=== PATIENT | male | born 1980 | race Caucasian/White ===

== ENCOUNTER 2025-03-04 20:08 | Inpatient (IN) | payer OTHER, SELFPAY ==
[2025-03-04] VITALS (8 sets, daily range): BP systolic 138–181; BP diastolic 99–125; BMI 40.1
[2025-03-04 17:32] LABS: % Basophils 0.9 % (0-2); % Immature Granulocytes 0.3 % (0-0.5); % Lymphocytes 23.8 % (20.5-51.1); % Monocytes 8.5 % (1.7-9.3); % Neutrophils 65.5 % (42.2-75.2); Absolute Basophils 0.1 10^3/uL (0-0.2); Absolute Eosinophils 0.1 10^3/uL (0-0.7); Absolute Lymphocytes 2.2 10^3/uL (1.2-3.4); Absolute Monocytes 0.8 10^3/uL (0.1-0.6); Absolute Neutrophils 6.2 10^3/uL (1.4-6.5); Hematocrit 43.9 % (39.0-52.0); Hemoglobin 14.9 g/dL (13.0-18.0); Mean Corp Hgb Conc. 33.9 g/dL (33.0-37.0); Mean Corpuscular Hgb 30.4 pg (27.0-31.0); Mean Corpuscular Volume 89.6 fL (80.0-94.0); Mean Platelet Volume 11.4 fL (7.4-10.4); Nucleated Red Blood Cells % 0 % (-); Platelet Count 256 10^3/uL (130-400); Red Cell Dist. Width 14.4 % (11.5-14.5); White Blood Cell Count 9.4 10^3/uL (4.8-10.8)
[2025-03-04 17:47] LABS: ALT (SGPT) 19 U/L (0-50); AST (SGOT) 23 U/L (17-59); Albumin 3.7 g/dl (3.5-5.0); Alkaline Phosphatase 153 U/L (38-126); Blood Urea Nitrogen 15 mg/dl (9-20); Calcium 9.7 mg/dl (8.4-10.2); Carbon Dioxide 21 mmol/L (22-30); Chloride 103 mmol/L (98-107); Glucose 267 mg/dl (70-99); Potassium 4.6 mmol/L (3.5-5.1); Sodium 134 mmol/L (135-145); Total Bilirubin 1.7 mg/dl (0.2-1.3); Total Protein 6.9 g/dl (6.3-8.2); eGFR > 60.00
[2025-03-04 17:54] LABS: NT-proBNP 4280 pg/ml; Troponin I 0.083 ng/ml
--- NOTE | 2025-03-04 19:08 | ED.GENMED ---
History of Present Illness
General
Chief Complaint: Breathing Problem
Time Seen by Provider: 03/04/25 18:21
History of Present Illness
History of Present Illness:
44-year-old male with history of izg-zrxehhs-wvryusbaw diabetes, hypertension, and morbid obesity presents the emergency department for evaluation of shortness of breath and leg swelling that has been ongoing for the last 2 months. He states over
the past several days he has had severe difficulty performing routine daily tasks prompting to come to the emergency department. He admits to poor medical compliance, the last time he was seen by his primary care physician was November 2023, his
primary care physician retired and he has not sought out primary care since that time. He has been off medications for more than 6 months. Prior medications include amlodipine, HCTZ, Jardiance, lisinopril, metformin, rosuvastatin, and baby
aspirin. Denies any chest pain at present.
Past History
Past History
ED Past Medical History: None
ED Past Surgical History: None
Social History
Tobacco: Non-smoker
Alcohol: Occasional
Drug: None
Personal: Single
Living: with family
Review of Systems
Review of Systems
Allergies reviewed?: Yes
All Other Systems: ROS reviewed and negative except as documented in HPI and ROS
Phy Exam
Physical Exam
Physical Exam:
GEN: Well appearing, NAD, WDWN
Eyes: PERRLA, EOMs intact, no scleral icterus
HENT: NCAT, oral mucosa moist
Lungs: Normal respiratory effort, bibasilar crackles
Cardiac: Tachycardic, regular, no murmur
Neuro: AO x 3
MSK: No gross deformity or ecchymosis. Severe bilateral lower extremity edema
Skin: No rashes, petechiae. Normal color, no pallor or jaundice.
Psych: Calm, cooperative, proper hygiene
Scores
Heart Failure Risk
Heart Failure Risk Score: Yes
History of Stroke or TIA: No
History of intubation for respiratory distress: No
Heart rate on ED arrival >/= 110: Yes
SaO2 <90% on arrival on room air: No
HR >/=110 during 3min walk test (or too ill to perform test): Yes
ECG has acute ischemic changes: No
Urea >/=12mmol/L (BUN 33.6mg/dL): No
Serum CO2>/=35mmol/L: No
Troponin I or T elevated to DE Level (0.4mg/dL): Yes
NT-proBNP >/=5,000ng/L (5,000pg/ml): No
HF Risk Score: 4
Admission Status: HIGH RISK 26.1% Consider SNF treatment or admission to hospital
Course
Orders/Labs/Results
Orders:
Orders
03/04/25 17:11
Electrocardiogram (*1) Urgent
Reason for Study: Shortness of Breath
EKG- Treatment ONCE
CXR2 [CR Chest - 2 Views ] Urgent
Comment:
Reason For Exam: sob
03/04/25 17:22
Complete Blood Count/With Diff Urgent
Comprehensive Metabolic Panel Urgent
NT-proBNP Urgent
Troponin I Urgent
03/04/25 19:05
Furosemide [Lasix] 40 mg IV ONCE ONE
03/05/25 00:00
Nitroglycerin Ointment [Nitro-Bid] 1 inch TOPICAL Q6
Abnormal Lab Results
03/04/25
17:22
MPV 11.4 H fL
(7.4-10.4)
Absolute Monos (auto) 0.8 H 10^3/uL
(0.1-0.6)
Sodium 134 L mmol/L
(135-145)
Carbon Dioxide 21 L mmol/L
(22-30)
Glucose 267 H mg/dl
(70-99)
Total Bilirubin 1.7 H mg/dl
(0.2-1.3)
Alkaline Phosphatase 153 H U/L
(38-126)
Troponin I 0.083 H* ng/ml
03/04/25 17:22
03/04/25 17:22
Vital Signs
Initial and Last Documented VS:
Initial Vital Signs
Temp Pulse Resp BP Pulse Ox
97.5 F 115 18 181/125 98
03/04/25 17:05 03/04/25 17:05 03/04/25 17:05 03/04/25 17:05 03/04/25 17:05
Last Documented Vital Signs
Temp Pulse Resp BP Pulse Ox
97.5 F 110 26 161/114 95
03/04/25 17:05 03/04/25 18:33 03/04/25 18:33 03/04/25 18:33 03/04/25 18:33
MDM/Problems Addressed
MDM/Problems Addressed:
Patient clinically in CHF secondary to medication noncompliance. Started on IV diuretics and topical nitroglycerin, will need inpatient management for further diuresis and echo as well as cardiology consultation
*Critical Care Note
Total Time (30-74mins, 75-104mins- exclusive of procedures): Not Applicable
ED Attending Note
-
Portions of this chart may have been created with voice recognition software.� Occasional wrong word or��sound alike� substitutions may have occurred due to the inherent limitations of voice recognition software.
Discharge Plan
Departure
Patient Disposition: Admit
Date of Disposition: 03/04/25
Time of Disposition: 19:19
Presentation/result/management discussed w/ accepting MD/DO: Hospitalist
Discharge Problem:
Acute CHF
Prescriptions:
No Action
No Current Medications
0
Interventions
Interventions:
*Risk Screen - Suicide Last Done: 03/04/25 17:05
*General Assessment Last Done: 03/04/25 18:41
*Neglect/Abuse Screening Last Done: 03/04/25 17:10
*ED- Fall Risk Assessment Last Done: 03/04/25 18:41
*ED COVID-19 Vaccine History Last Done: 03/04/25 18:41
ED- Cardiac Assessment Last Done: 03/04/25 18:42
ED- Pulmonary Assessment Last Done: 03/04/25 18:42
Discharge Date and Time
Print Language: BURUNDIAN
[2025-03-04] MEDS: NITRO-BID 1 INCH TOPICAL (19:43)
[2025-03-04] MEDS: LASIX 40 MG IV (19:47)
[2025-03-04 19:57] LABS: Erythrocyte Sed Rate 11 mm/hour (0-20)
--- NOTE | 2025-03-04 20:07 | HPS.HSE ---
Family Physician
-
Family Physician: * NONE
Chief Complaint
-
Shortness of Breath and Lower Extremity Edema
History of Present Illness
Patient is a 44 y/o male past medical history of hypertension, hyperlipidemia and diabetes mellitus who presents with increased shortness of breath and lower extremity edema. Patient reports his PCP retired and due to change in his insurance he has
not found a new primary at this time and has been off of his medications for the past 6 months. Patient admits to increasing shortness of breath and lower extremity edema for the past 2 months. He reports he used to exercise but now can't walk
across the room without shortness of breath. He reports orthopnea. He denies prior history of coronary artery disease or heart failure.
Patient is also complaining about a wound on his right great toe. He notes a prior wound that was being treated at the wound center. He states a callus had formed, but recent the callus was torn off and the wound has not healed. He reports foul
smelling draining for the wound. He denies fevers, sweats or chills.
Medical History
Past Medical History
Past Medical History: Reports Other
Additional Past Medical History:
Essential Hypertension
Hyperlipidemia
Diabetes Mellitus, Type II
Diabetic Neuropathy
Morbid Obesity
Past Surgical History: Reports None
Social History
Tobacco: Non-smoker
Alcohol: None
Family History
Family History: Not pertinent
Allergies / Home Medications
Allergies reflects when Allergies were last updated in [facility].
Home Medications with original date entered in [facility]
Allergy/Medication List:
Allergies
Allergy/AdvReac Type Severity Reaction Status Date / Time
No Known Allergies Allergy Verified 03/04/25 18:41
Home Medications
No Meds [No Current Medications] 03/04/25
Prior Medications:
-Lisinopril 40mg Daily
-HCTZ 12.5mg Daily
-Metformin 1000mg BID
-Crestor 5mg Daily
-Jardiance 10mg Daily
-Aspirin 81mg Daily
Review of Systems
-
A 12 point ROS was completed and negative except as noted: Yes
Constitutional: Denies Fever or Chills
Respiratory: Reports Trouble Breathing
Cardiac: Reports Palpitations
Physical Exam
Vital Signs
Vital Signs
Temp Pulse Resp BP Pulse Ox
97.5 F 106 17 161/123 94
03/04/25 17:05 03/04/25 19:47 03/04/25 19:15 03/04/25 19:47 03/04/25 19:30
Physical Exam
General: Well Developed, Well Nourished and Morbidly Obese
HEENT: Anicteric and Moist mucous membranes
Respiratory: Rales (Bilaterally)
Cardiac: S1/S2 and Regular Rhythm
GI: Soft and Non Tender
Rectal: Deferred by Provider
Musculoskeletal: No Clubbing, No Cyanosis and Other (Severe Bilateral Lower Extremity Edema)
Skin: Warm, Dry and Ulcers (Right Great Toe wound very malodorous appears deep probing bone; Super left evans wound with slough present)
Neuro: Awake, Alert, Oriented and Nonfocal/grossly intact
Psych: Calm
Laboratory Results
-
03/04/25 17:22
03/04/25 17:22
Laboratory Results
Total Bilirubin 1.7 mg/dl (0.2-1.3) H 03/04/25 17:22
AST 23 U/L (17-59) 03/04/25 17:22
ALT 19 U/L (0-50) 03/04/25 17:22
Alkaline Phosphatase 153 U/L (38-126) H 03/04/25 17:22
Troponin I 0.083 ng/ml H* 03/04/25 17:22
Impression/Plan
-
Acute Heart Failure, unknown type
-Consult Cardiology
-Check Echo
-Continue Lasix 40mg IV BID
-Monitor Daily Weights
Elevated Troponin, likely non-ischemic myocardial injury in setting of heart failure
-Trend troponin
Uncontrolled Hypertension
-Continue nitro-paste as started in ED
-Resume Lisinopril as decreased dose 20mg Daily
Right Great Toe Wound, suspect underlying osteomyelitis
-Check Foot X-Ray tonight, and plan for MRI tomorrow
-Consult Wound Care
-Consult Podiatry
-Hold on antibiotics
Uncontrolled Diabetes Mellitus with Diabetic Neuropathy
-Resume Farxiga in place of Jardiance
-Hold metformin
-Check HgbA1c
-Monitor sugars and continue coverage insulin
Hyperlipidemia
-Resume Crestor 5mg HS
-Check lipid panel - consider increasing dose based on results
Morbid Obesity due to Excess Calories
-Encourage weight loss
-Consult dietary
DVT proph: Lovenox
Code Status: Full Code
--- NOTE | 2025-03-04 20:08 | W.PN.UPDATE ---
Update Note
Progress Note Update
Patient seen in conjunction with JULIA. I agree with the findings and physical. I concur with the assessment and plan listed otherwise. Next
Briefly, this is a 44-year-old male with past medical history significant for hypertension, hyperlipidemia, pbp-bdbnoxl-mkgsuzlwc diabetes, who presents to the emergency department with approximately 6 to 8 weeks of increasing exertional dyspnea,
orthopnea, shortness of breath and bilateral lower extremity swelling. He has been off of his medications for about 6 months due to loss of his primary care physician and change of jobs. Patient denies angina. He denies palpitations. He denies
any recent cough cold or flulike illness. He reports chronic right great toe wound. You have been following wound care for some time but more recently had a scab that came off and since then it has been nonhealing for several weeks. Denies having
fevers or chills. He denies pain radiating up his legs. On the left leg he does have some punctate wounds with surrounding erythema and mild tenderness to palpation.
In the emergency department he was afebrile, blood pressure was 161/114, he was tachycardic to 110 with respirate of 26. ECG shows sinus tachycardia at a rate of 107 with left atrial enlargement and low voltages. Chest x-ray shows pulmonary edema.
Prior echocardiogram few years ago shows a left ventricular hypertrophy with EF of 55%. Troponin was slightly elevated at 0.08, BNP was elevated over 4000
CBC was normal. Electrolytes BUN and creatinine were also normal. Glucose was slightly elevated at 267.
Assessment and plan
44-year-old coming in with orthopnea, dyspnea on exertion shortness of breath and bilateral lower extremity edema. Lungs had crackles on x-ray with pulmonary edema. BNP is elevated. Troponin slightly elevated. He is an uncontrolled hypertension.
Glucose is controlled. He does appear to have diabetic right great toe wound as well as possible cellulitis of the left leg. He is afebrile has no leukocytosis and is quite hemodynamically stable. Glucose is well-controlled without DKA.
1. CHF
New onset CHF likely secondary to history of uncontrolled hypertension in the setting of lack of access to his medications. No acute ischemia on ECG but cannot rule out ischemic cardiomyopathy. No recent infections. No history of connective
tissue disease.
- Admit to telemetry
- Continue Lasix 40 mg IV twice daily for now
- trend troponin
- Patient placed on Nitropaste we will continue that for 6 hours until BP well-controlled
- Continue aspirin statin and Jardiance
-Additional BP control with lisinopril 20 mg
-Beta-krystal pending echocardiogram
- echo, lipid panel, A1c, TSH
- Cardiology consultation
2. Diabetic foot ulcer in the right great toe -wet, draining, no sign of ischemia at this time. No surrounding cellulitis. Mild tenderness to palpation. He also has mild erythema on the left lower extremity. No signs of systemic infection at
this time.
-Suspect possible osteomyelitis in that toe, check inflammatory markers and MRI
-Podiatry consultation
-Consider ID consultation
-Blood cultures despite fever and did not start antibiotics but pending and that will hold for antibiotics until MRI and podiatry consults.
DVT PPX - lovenox sq
Code status - Full code
[2025-03-04] MEDS: LOW STRENGTH ASPIRIN 324 MG PO (21:03)
[2025-03-04 23:44] LABS: Glucose - Point of Care 259 mg/dl (70-99)
[2025-03-05] VITALS (11 sets, daily range): BP systolic 118–179; BP diastolic 86–127; BMI 39.9
[2025-03-05 01:03] LABS: Troponin I 0.088 ng/ml
--- NOTE | 2025-03-05 02:14 | PTCARENOTE ---
Pt. rec'd into room 2255 from ED AAOx3, VSS, NSR-ST (120's with activity) on the monitor. Pt. denies any CP, does complain of some dyspnea with ambulation. Lungs diminished, pulse ox 96% on RA. Wound care provided to right great toe (pt. denies
pain). Pt. ambulates with steady gait. Plan of care discussed with pt., CHF education initiated (folder given), importance of accurate I&O's explained. Pt. very pleasant/cooperative, currently resting quietly.
[2025-03-05 03:50] LABS: Hematocrit 39.2 % (39.0-52.0); Hemoglobin 13.6 g/dL (13.0-18.0); Mean Corp Hgb Conc. 34.7 g/dL (33.0-37.0); Mean Corpuscular Hgb 31.3 pg (27.0-31.0); Mean Corpuscular Volume 90.3 fL (80.0-94.0); Mean Platelet Volume 12.1 fL (7.4-10.4); Platelet Count 230 10^3/uL (130-400); Red Blood Cell Count 4.34 10^6/uL (4.70-6.10); Red Cell Dist. Width 14.3 % (11.5-14.5); White Blood Cell Count 8.3 10^3/uL (4.8-10.8)
[2025-03-05 04:18] LABS: ALT (SGPT) 17 U/L (0-50); AST (SGOT) 23 U/L (17-59); Albumin 3.7 g/dl (3.5-5.0); Alkaline Phosphatase 133 U/L (38-126); Blood Urea Nitrogen 14 mg/dl (9-20); Calcium 9.5 mg/dl (8.4-10.2); Carbon Dioxide 22 mmol/L (22-30); Chloride 103 mmol/L (98-107); Direct Bilirubin 0.5 mg/dl (0.0-0.4); Estimated Creatinine Clearance > 125 ml/min; Glucose 219 mg/dl (70-99); HDL Cholesterol 29 mg/dl; LDL Cholesterol, Calculated 112 mg/dl; Magnesium 1.7 mg/dl (1.6-2.3); Potassium 4.1 mmol/L (3.5-5.1); Sodium 136 mmol/L (135-145); Total Bilirubin 1.8 mg/dl (0.2-1.3); Total Cholesterol 162 mg/dl (50-199); Total Protein 6.6 g/dl (6.3-8.2); Triglyceride 105 mg/dl (10-149); Very Low Density Lipoprotein 21 mg/dl (0-30); eGFR > 60.00
[2025-03-05 04:29] LABS: Troponin I 0.079 ng/ml
[2025-03-05 04:46] LABS: TSH Reflex To Free T4 1.74 uIU/ml (0.47-4.68)
[2025-03-05] MEDS: LASIX 40 MG IV ×2 (07:26→16:23)
[2025-03-05] MEDS: FARXIGA 10 MG PO (07:26)
[2025-03-05] MEDS: ASPIR LOW (ENTERIC COATED) 81 MG PO (07:26)
[2025-03-05] MEDS: ZESTRIL 20 MG PO (07:26)
--- NOTE | 2025-03-05 07:42 | CON.CAR ---
Addendum entered and electronically signed by Siva Castro MD 03/05/25 12:53:
44-year-old man with hypertension, hyperlipidemia and diabetes who has been off medication for roughly 6 months. He presents to the hospital with evidence of heart failure, EF unknown, proBNP is 4280, blood pressure 181/125., Troponin is 0.079 he
complains of shortness of breath and is aware of his heart pounding when he walks but denies chest discomfort. He states that he used to weigh close to 500 pounds and with diet and exercise has lost close to 200 pounds. Echo in 2021 showed
preserved ejection fraction.
PMH: Hypertension, hyperlipidemia, diabetes, obesity, diabetic neuropathy
SH: Non-smoker no alcohol, works at [employer], single
Meds on admission: None
Meds in hospital: Subcu Lovenox, furosemide 40 mg IV twice daily, insulin sliding scale, aspirin 81 mg daily, lisinopril 20 mg a day, dapagliflozin 10 mg a day, metoprolol ER 25 mg daily, rosuvastatin 20 mg a day
Allergies none
ROS as below
Remainder of history as below, reviewed and independently confirmed along with assessments and recommendations
Currently 159/107, pulse 99, respiratory 20, afebrile, sats 95%, weight is 137.3 kg, pleasant, no distress, head neck exam unremarkable, lungs are clear, relatively tachycardic, no obvious murmurs, JVD okay, abdomen obese, 3+ edema right, 2-3+ edema
left, right foot wrapped
Hemoglobin 13.6, BUN 14, creatinine 0.8, glucose 219, hemoglobin A1c 9.9, troponin 0.088, proBNP 4280, chest x-ray cardiomegaly, mild vascular congestion
ECG: Low voltage, left atrial enlargement
Impression:
Subacute/acute heart failure, EF unknown
Accelerated/malignant hypertension
Detectable troponin
Hypercholesterolemia
Type 2 diabetes
Morbid obesity, with 200 pound weight loss
Diabetic foot ulcer
Diabetic neuropathy
Plan:
He presents with subacute/acute heart failure, ejection fraction unknown related to discontinuation of his medical regimen. I am hopeful that his ejection fraction will be preserved, and that with diuresis and GDMT he will do well.
I suspect his troponin elevation is a nonischemic myocardial injury, not related to ACS or obstructive CAD. Therefore, the plan will not be to heparinize or send him to the [facility] unless his clinical status changes. We can consider an outpatient
ischemic evaluation.
He looks much better than reported at the time of admission. He is already back on a long acting beta-krystal, statin, dapagliflozin, CAS inhibitor and furosemide. We can consider spironolactone. Will uptitrate medications as possible.
Await echocardiogram, continue IV diuretic, and hopefully patient will be ready for discharge in 48 to 72 hours.
Original Note:
Consultation
Consultation Request
Date/Time Consultation Performed: 03/05/25
Requesting Provider: Dr. Delvalle
Performing Provider: Arelis Merino PA-C for Dr. ODILON Castro
Reason for Consultation: CHF
Medical History
-
Chief Complaint: SOB
History of Present Illness:
Patient is a 44 yo M with PMH of HTN, HLD, DM2 who states his PCP retired 11/2023 and has not seen provider since that time. He ran out of his medications, which include amlodipine, HCTZ, Jardiance, lisinopril, metformin, rosuvastatin, and baby
aspirin, approximately 6 months ago. He reports noting SOB and LE edema, worsening over the last 2 months, particularly worse several days prior to admission. Reports heart pounding, LE edema, weight gain, abd bloating, and orthopnea. No CP. BPs
elevated on arrival at 181/125. ProBNP 4280 and CXR with mild edema. Cardiology consulted for assistance with mgmt. He also reports a wound on his R foot which he initially felt was healing however opened back up. No fevers/chills.
PMH:
HTN
HLD
DM
Obesity
Past Medical History
Past Medical History: Other (in HPI)
Social History
Tobacco: Non-Smoker
Alcohol: None
Employment: Employed
Family History
Family History: Diabetes and Other (CVA in grandmother)
Allergies / Home Medications
Allergy/AdvReac Type Severity Reaction Status Date / Time
No Known Allergies Allergy Verified 03/04/25 18:41
�Medication �Instructions �Recorded �Confirmed �Type
No Meds [No Current Medications] 03/04/25 03/04/25 History
Review of Systems
-
History Source: Patient
All other systems: Negative unless noted
Physical Exam
Vital Signs
Temp Pulse Resp BP Pulse Ox
97.7 F 102 20 157/101 96
03/05/25 06:49 03/05/25 06:49 03/05/25 06:49 03/05/25 03:33 03/05/25 06:49
Lab Results
03/05/25 03:30
03/05/25 03:30
Troponin I 0.079 ng/ml H* 03/05/25 03:30
Vvb-O-Vbqzyylqtql Pept 4280 pg/ml 03/04/25 17:22
Physical Exam
General: No Apparent Distress and Comfortable
HEENT: Normocephalic, Anicteric and Moist Mucous Membranes
Respiratory: Crackles and Non Labored Respirations
Cardiac: S1/S2, Regular Rhythm and Other (tachy)
GI: Soft, Non Tender, Normal Bowel Sounds and Distended
Musculoskeletal: No Clubbing, No Cyanosis and Edema (4+ of B/L LE)
Skin: Warm and Dry
Neuro: AO x 3
Impression / Plan
-
Primary Network Programmer: none
Assessment:
Presentation with VELASQUEZ
Hypertensive urgency
Acute CHF, unknown type
Elevated troponin
Sinus tachycardia
R diabetic foot wound
Uncontrolled DM2 with diabetic neuropathy
HLD
Obesity
ECHO 2021: EF 55%, mild concentric LVH, trace MR, mildly dilated LA, normal right heart
Plan:
- Patient presents with dyspnea on exertion and lower extremity edema
- proBNP 4280 and chest x-ray with evidence of pulmonary edema. Continue IV Lasix 40 mg twice daily. Patient reports good response. Creatinine stable at 0.8. He had been on HCTZ prior to stopping all his meds
- CHF education
- In sinus tachycardia with PVCs on review of telemetry overnight. Repeat EKG this a.m.
- Check echo, prior from 2021 as above
- Troponins relatively flat in 0.08 range. Reports some feelings of chest pressure when his heart is pounding. Suspected nonischemic myocardial injury. Aspirin 81 mg daily has been restarted
- Would consider for IV heparin. Given risk factors, would consider for inpatient ischemic evaluation prior to discharge once diuresed
- LDL 112. will increase crestor dose. goal LDL<70 given diabetes
- Hemoglobin A1c pending. Farxiga has been auto substituted for his prior Jardiance
- We discussed need for medication compliance and improved blood pressure, cholesterol, and blood sugar control
- prior to running out of his medications, patient was on amlodipine, HCTZ, Jardiance, lisinopril, metformin, rosuvastatin, and baby aspirin. Toprol 25 mg daily started and lisinopril 20 mg daily restarted.
- For abdominal ultrasound, right lower extremity MRI, as well as NORA today
- Continue wound care to right lower extremity. Podiatry consulted
- Discussed with nursing
Data Reviewed
-
EKG: Tracing Personally Visualized and interpreted
Radiology: Report Reviewed by me
Medical Tests (Nuc Med, Echo etc): Report Reviewed by me
Labs: Labs Reviewed by me
Old Records: Reviewed
[2025-03-05 08:02] LABS: Glucose - Point of Care 201 mg/dl (70-99)
[2025-03-05] MEDS: NOVOLOG FLEXPEN-LOW RESISTANCE 2 UNITS SC (08:14)
--- NOTE | 2025-03-05 08:26 | W.PN.HOSP.TC ---
Today's Communication/Plan
-
See PN
Assessment / Plan
Assessment / Plan
44yo M with PMHx of DM, HTN, CHF came to the hospital with ongoing SOB. He lost follow up with PCP 1 year ago and ran out of his meds appr 6 month before this admission. Could not follow up with his chronic health problems due to family reasons and
finally found availability in his work and family schedule to come to ED. Found in mild CHF. ALso had R great toe wound for 2-3 months, with foul smelling discharge, concerning for diabetic wound with OM.
A/P:
#Acute HFpEF exacerbation
#Troponin elevation, most likely 2/2 CHF
#Sinus tachycardia
#Essential HTN
Lasix, daily weight, I&O, follow Cr, electrolytes
Low saklt diet
Echo
Cardiology consult
ASA, statin, BB
TSH WNL
LDL 112
troponin flat 0.079-0.088-0.[address] overt ST elevation
#R great toe diabetic wound with possible acute OM
Bcx
woundCx
Start Vanco/Zosyn
follow MRSA screen
Podiatry consult
MRI
US LE arterial
#DM type 2 with unknown complications
Accuchecks, insulin SS, DM diet
HgbA1c
#Indirect bilirubinemia
#Elevated Alk.phos
can be 2/2 CHF, liver congestion, [place], Alk.phos can be 2/2 bone involvement in toe infection
Check US RUQ, LDH, retics
DVT ppx lovenox
Full code
I have spent at least 55min reviewing chart, test results, communication with consultants and providing direct patient care
Anticipated Discharge: > 48 hours
Subjective/Interval History
-
Date of Service: March 05, 2025
Objective Data
-
Labs:
Laboratory Results
03/05/25
03:30
WBC 8.3
Hgb 13.6
Hct 39.2
Plt Count 230
Sodium 136
Potassium 4.1
Chloride 103
Carbon Dioxide 22
BUN 14
Creatinine 0.8
Glucose 219 H
Calcium 9.5
Total Bilirubin 1.8 H
AST 23
ALT 17
Alkaline Phosphatase 133 H
Vital Signs:
Vital Signs
Temp Pulse Resp BP Pulse Ox
97.7 F 102 20 157/101 96
03/05/25 06:49 03/05/25 06:49 03/05/25 06:49 03/05/25 03:33 03/05/25 06:49
I&O
03/04/25 03/05/25 03/06/25
06:59 06:59 06:59
Intake Total 480 / 480
Output Total 3350 / 3350
Balance -2870 / -2870
Review of Systems
-
History Source: Patient
All other systems: Reviewed and negative
Respiratory: Reports Trouble Breathing
Cardiac: Reports Chest Pain (intermittent chest pressure)
Physical Exam
-
General: Comfortable
HEENT: Normocephalic
Respiratory: Crackles (bibasilar)
Cardiac: Regular Rhythm and Tachycardic
GI: Soft, Nontender and Nondistended
Musculoskeletal: No Clubbing, No Cyanosis, Edema, Right Lower Extrem and Edema, Left Lower Extrem
Skin: Other (R great toe wound)
Neuro: Awake, Alert, Oriented and AO x 3
Psych: Calm
[2025-03-05 08:34] LABS: Glycohemoglobin (HgbA1c) 9.9 % (4.0-5.6)
--- NOTE | 2025-03-05 09:18 | CARDSERVLU ---
Echocardiogram with [facility] completed after protocol screening completed. Allergies verified.
Patent IV site: _Right arm 18 G PC____
IV site flushed with 0.9% NaCl pre and post administration.
Diluted bolus method utilized to enhance visualization of ventricular gutierrez.
Total volume given: __2.5__ mL
Patient tolerated all procedures well without complications.
[2025-03-05 09:24] LABS: Reticulocyte Count 3.6 % (0.4-2.8)
[2025-03-05 10:04] LABS: LDH 251 U/L (120-246)
[2025-03-05] MEDS: TOPROL XL 25 MG PO (10:33)
[2025-03-05 12:16] LABS: Glucose - Point of Care 159 mg/dl (70-99)
[2025-03-05] MEDS: NOVOLOG FLEXPEN-LOW RESISTANCE 1 UNITS SC (12:19)
--- NOTE | 2025-03-05 12:41 | WOUNDNOTE ---
L MEDIAL LOWER LEG
--- NOTE | 2025-03-05 12:42 | WOUNDNOTE ---
R PLANTAR GREAT TOE
--- NOTE | 2025-03-05 12:43 | WOUNDNOTE ---
L LATERAL ANKLE/LEG
--- NOTE | 2025-03-05 12:45 | WOUNDNOTE ---
[facility] RN note: Patient admitted with acute CHF
See H&P for complete history.
PMH: NIDDM, obesity and diabetic R toe ulcer( went to wound center 04/28/[address] Stein)
Wound Location and type/assessment: Patient admitted with: R plantar great toe diabetic ulcer. Patient reports last time he went to wound care center it was healed. Ulcer reopened, patient unsure of duration. Base pink with cunha/arechiga slough, did not
palpate bone, depth 1cm. Patient for MRI of R foot, NORA/TBI results pending. Podiatry on consult.
L lateral ankle with dry cunha eschar, anterior leg with small serous blister and medially with dry cunha eschar. Patient does not recall how he got these wounds but started when leg swelled up. + palpable pedal pulses, heels intact.
Appetite: good
Pressure redistribution devices in place:On air mattress. Pillow under calves.
Plan: Dry dressing applied to R toe and L leg, will follow along with Podiatry and assist as needed. Recommend compression of both legs with reese wraps knee high, if arterial studies within normal limits.
Will confirm orders with hospitalist and update nurse.
Updated care plan and will follow as needed.
Note to case management of equipment requested for discharge: TBD
Recommend follow up with Pole Truck Driver.
--- NOTE | 2025-03-05 12:46 | WOUNDNOTE ---
[facility] RN NOTE ADDENDUM: Wound culture obtained of R great toe as requested, nurse Maria Fernanda will bring to lab.
[2025-03-05] MEDS: TOPROL XL 50 MG PO (13:28)
--- NOTE | 2025-03-05 14:08 | PTCARENOTE ---
Pt received this am with no c/o of any pain or sob. Room air sat 98%. OOB ad christin, gait steady. Voiding large amounts of clear yellow urine in the urinal. Pt maintained NPO for US of the abdomen.
--- NOTE | 2025-03-05 15:48 | CM ---
spoke to pt in room, he is prev indep, lives with his mother and father in a 1 story home with a ramp to enter. he denies any dme's. he understands he may need to go home with iv antibx and is agreeable. awaiting script from ID to begin referral
process. he does not have a PCP, his MD (Harjeet) retired. i gave the pt information on Family resident program and he is interested. awaiting final dc plans from MD.
--- NOTE | 2025-03-05 16:33 | W.PN.UPDATE ---
Update Note
Progress Note Update
pt seen
full consult dictated
ulcer stable, but probes to bone. Probable osteo
awaiting mri
rec amp if positive and extent of osteo
d/.w pt about iv abx vs amp
wants to think about it
will follow
[2025-03-05] MEDS: FLUSH (NSS) 2 FLUSH IV (16:52)
[2025-03-05] MEDS: VANCOCIN 540 MG IV (16:52)
[2025-03-05 17:16] LABS: Glucose - Point of Care 144 mg/dl (70-99)
[2025-03-05] MEDS: NOVOLOG FLEXPEN-LOW RESISTANCE SC (17:45)
[2025-03-05] MEDS: CRESTOR 20 MG PO (17:47)
[2025-03-05] MEDS: LOVENOX 40 MG SC (17:47)
--- NOTE | 2025-03-05 17:58 | PHA.VAN.IN ---
Assessment
- Assessment
Renal Function: Unknown baseline
Concomitant Antimicrobials: ZOSYN
- Previous Dosing Experience
Previous Regimen: NONE
AUC Dosing Plan
- Dosing Variables
Dosing Weight (kg): 137.3
Dosing CrCl (ml/min): 100
Vd coefficient (L/kg): 0.6
- Empiric Dosing
Initial / Loading Dose: 2GM
Maintenance Regimen: 1750MG IV Q12H
Estimated AUC (mcg*h/mL): 529
Estimated Peak (mcg*h/mL): 32.7
Estimated Trough (mcg/ml): 13.6
Estimated Half Life (H): 7.9
Pharmacokinetics Vancomycin I
- -
Patient Age: 44
Patient Sex: Male
Vancomycin Day #: 1
Indication: Bone And Joint
Requesting Provider: RASHEL
Height / Weight:
Height 6 ft 1 in
Actual Weight 137.3 kg
Pertinent Past Medical History: DM
- Vital Signs / Lab Results
Temp Pulse Resp BP Pulse Ox
98.4 F 99 20 159/107 94
03/05/25 14:53 03/05/25 12:00 03/05/25 14:53 03/05/25 11:04 03/05/25 14:53
Lab Results - Hematology
03/04/25 03/05/25
17:22 03:30
WBC 9.4 8.3
Lab Results - Chemistry
03/04/25 03/05/25
17:22 03:30
BUN 15 14
Creatinine 0.8 0.8
Estimated Creat Clear > 125
Albumin 3.7 3.7
Microbiology Results
03/05/25 11:39 Gram Stain - Preliminary
Toe
[2025-03-05] MEDS: ZOSYN 50 IV ×2 (19:57→23:15)
[2025-03-05 21:46] LABS: Glucose - Point of Care 141 mg/dl (70-99)
[2025-03-06] VITALS (10 sets, daily range): BP systolic 116–168; BP diastolic 74–110; BMI 37.8
--- NOTE | 2025-03-06 04:10 | PTCARENOTE ---
Rec'd pt at change of shift. AAO*#, VSS, SR on TELE monitor with elevated BP. Pt taken to MRI. Pt returned and reported bloody nose, with high blood pressure. JULIA vizcaino notified and assessed pt at bedside. Pt denies having any pain or
discomfort. Pt now resting with call jones in reach and plan of care ongoing.
[2025-03-06 04:40] LABS: ALT (SGPT) 15 U/L (0-50); AST (SGOT) 20 U/L (17-59); Albumin 3.7 g/dl (3.5-5.0); Alkaline Phosphatase 113 U/L (38-126); Blood Urea Nitrogen 14 mg/dl (9-20); Calcium 9.4 mg/dl (8.4-10.2); Carbon Dioxide 23 mmol/L (22-30); Chloride 102 mmol/L (98-107); Estimated Creatinine Clearance > 125 ml/min; Glucose 119 mg/dl (70-99); Potassium 3.6 mmol/L (3.5-5.1); Sodium 138 mmol/L (135-145); Total Bilirubin 1.4 mg/dl (0.2-1.3); Total Protein 6.5 g/dl (6.3-8.2); eGFR > 60.00
[2025-03-06 04:43] LABS: % Eosinophils 1.6 % (0-6); % Immature Granulocytes 0.2 % (0-0.5); % Lymphocytes 25.2 % (20.5-51.1); % Monocytes 12.3 % (1.7-9.3); % Neutrophils 59.7 % (42.2-75.2); Absolute Basophils 0.1 10^3/uL (0-0.2); Absolute Eosinophils 0.1 10^3/uL (0-0.7); Absolute Lymphocytes 2.3 10^3/uL (1.2-3.4); Absolute Monocytes 1.1 10^3/uL (0.1-0.6); Absolute Neutrophils 5.4 10^3/uL (1.4-6.5); Hematocrit 41.9 % (39.0-52.0); Mean Corp Hgb Conc. 33.4 g/dL (33.0-37.0); Mean Corpuscular Hgb 30.5 pg (27.0-31.0); Mean Corpuscular Volume 91.3 fL (80.0-94.0); Mean Platelet Volume 12.2 fL (7.4-10.4); Nucleated Red Blood Cells % 0 % (-); Platelet Count 231 10^3/uL (130-400); Red Blood Cell Count 4.59 10^6/uL (4.70-6.10); Red Cell Dist. Width 14.5 % (11.5-14.5)
[2025-03-06] MEDS: ZOSYN 50 IV ×4 (05:38→23:06)
[2025-03-06] MEDS: VANCOCIN 535 MG IV ×2 (06:17→18:08)
[2025-03-06 08:02] LABS: Glucose - Point of Care 118 mg/dl (70-99)
[2025-03-06] MEDS: NOVOLOG FLEXPEN-LOW RESISTANCE SC (08:12)
--- NOTE | 2025-03-06 08:54 | W.PN.UPDATE ---
Update Note
Progress Note Update
pt with early osteo distal phal hallux on mri
Due to finding and tissue defect, rec at minimum partial amp/amp of hallux. Will d/w pt. Stable for now, cont abx. D/w cardio---needs cath first and they will decide when stable for OR
Was going to do today, will cancel OR for today
please keep posted as when pt is stable for OR
[2025-03-06] MEDS: ZESTRIL 20 MG PO (08:58)
[2025-03-06] MEDS: FARXIGA 10 MG PO (08:58)
[2025-03-06] MEDS: ASPIR LOW (ENTERIC COATED) 81 MG PO (08:58)
[2025-03-06] MEDS: TOPROL XL 100 MG PO (08:58)
[2025-03-06] MEDS: HYDROPHOR 1 APPLIC TOPICAL (08:59)
[2025-03-06] MEDS: LASIX 40 MG IV ×2 (08:59→16:15)
--- NOTE | 2025-03-06 09:12 | W.PN.HOSP.TC ---
Today's Communication/Plan
-
cardiac cath
monitor recurrent nose bleed, cold compress as needed, apply pressure
Cont Abx
Assessment / Plan
Assessment / Plan
44yo M with PMHx of DM, HTN, CHF came to the hospital with ongoing SOB. He lost follow up with PCP 1 year ago and ran out of his [employer] appr 6 month before this admission. Could not follow up with his chronic health problems due to family reasons and
finally found availability in his work and family schedule to come to ED. Found in mild CHF. ALso had R great toe wound for 2-3 months, with foul smelling discharge, concerning for diabetic wound with OM.
A/P:
#Acute HFpEF exacerbation
#Troponin elevation, most likely 2/2 CHF
#Sinus tachycardia
#Essential HTN
Lasix, daily weight, I&O, follow Cr, electrolytes
Low salt diet
Echo: EF 15% with global hypokinesis
Cardiology consult: cath
ASA, statin, BB
TSH WNL
LDL 112
troponin flat 0.079-0.088-0.083
[address] without overt ST elevation
#R great toe diabetic wound with acute OM
Bcx NTD
woundCx: GPR, GNR, GPC
Vanco/Zosyn
MRSA screen pos
Podiatry consult: for surgical mgmt
MRI proved initial stage of OM
US LE arterial witthout PAD
#DM type 2 with unknown complications
Accuchecks, insulin SS, DM diet
HgbA1c
#Epistaxis
minimal
most probably 2/2 blowing the nose
monitor
#Indirect bilirubinemia - improved
#Elevated Alk.phos - resolved
LDH midly elevated as well as mild retics elevation and total bili 1.4 - most likely reaction to acute disease
DVT ppx lovenox
Full code
I have spent at least 35min reviewing chart, test results, communication with consultants and providing direct patient care
Anticipated Discharge: > 48 hours
Subjective/Interval History
-
Date of Service: March 06, 2025
Objective Data
-
Labs:
Laboratory Results
03/06/25
02:49
WBC 9.0
Hgb 14.0
Hct 41.9
Plt Count 231
Sodium 138
Potassium 3.6
Chloride 102
Carbon Dioxide 23
BUN 14
Creatinine 0.8
Glucose 119 H
Calcium 9.4
Total Bilirubin 1.4 H
AST 20
ALT 15
Alkaline Phosphatase 113
Vital Signs:
Vital Signs
Temp Pulse Resp BP Pulse Ox
98.3 F 98 20 145/93 97
03/06/25 07:53 03/06/25 08:58 03/06/25 07:53 03/06/25 08:58 03/06/25 07:53
I&O
03/05/25 03/06/25 03/07/25
06:59 06:59 06:59
Intake Total 480 / 480 530 / 530
Output Total 3350 / 3350 6690 / 6690
Balance -2870 / -2870 -6160 / -6160
Review of Systems
-
History Source: Patient
All other systems: Reviewed and negative
Physical Exam
-
General: No Apparent Distress
HEENT: Normocephalic
GI: Soft, Nontender and Nondistended
Musculoskeletal: Other (foul-smelling diabetic wound on R great toe)
--- NOTE | 2025-03-06 11:46 | W.PN.CARDCBS ---
Addendum entered and electronically signed by aTvo Guzman MD 03/06/25 13:56:
I saw and examined the patient.
The Educational Director's note was reviewed and I agree with the note.
Comment:
GEN: No distress, awake, Ox3
HEENT: supple, anicteric, mmm
LUNGS: CTA, no wheezes/rales
CV: Reg, S1/S2, 1/6 syst LSB, no gallop
ABD: soft, BS+, NT/ND
EXT: dressing intact
NEURO: Gross non-focal
SKIN: No rash
Plan:
Continues to do Lasix. With diabetes and markedly reduced ejection fraction we will proceed with right and left heart catheterization in a.m.
Start carvedilol 12.5mg po bid, add spironolactone 12.5mg daily, continue continue Cipro 20 mg daily and Farxiga 10 mg daily.
Ultimately also needs toe amputation per podiatry. Continue antibiotics for now.
Will await catheterization results prior to surgery.
Original Note:
Today's Communication / Plan
-
Continue diuresis
Cath in a.m.
Transition Toprol to Coreg given EF reduction and add Aldactone given low EF
will need R great toe amp prior to DC
Impression / Plan
-
Primary Hand Fabric Cutter: none
Assessment:
Presentation with VELASQUEZ
Hypertensive urgency
Acute HFrEF
Elevated troponin
Sinus tachycardia
R diabetic foot wound with osteomyelitis
Uncontrolled DM2 with diabetic neuropathy
HLD
Obesity
ECHO 2021: EF 55%, mild concentric LVH, trace MR, mildly dilated LA, normal right heart
ECHO 03/05/25: EF 27%, global hypokinesis, mod enlarged LA, mildly enlarged RA, no significant valvular disease, trace pericardial effusion
Plan:
- Patient presents with dyspnea on exertion and lower extremity edema
- Diuresing well with IV Lasix 40 mg twice daily with markedly negative I&O. Creatinine remains stable
- CHF education
- Echocardiogram with results as above, EF 27%, new reduction compared to last echo from 2021. Reviewed results with patient 03/06.
-Will transition Toprol to Coreg 12.5mg BID. Continue lisinopril. Add Aldactone 12.5 mg daily
- Given new cardiomyopathy, new CHF, and elevated troponin, will plan for left and right heart cath this admission. Patient believes he can lay flat so we will plan for cath in a.m. N.p.o. after midnight. Procedure reviewed with patient in
detail. Concern for multivessel disease given uncontrolled diabetes
- LDL 112. Crestor dose increased this admission. Goal LDL less than 70 given diabetes
- Hemoglobin A1c 9.9%. Will consult diabetic management. Farxiga has been auto substituted for his prior Jardiance
- of note, prior to running out of his medications, patient was on amlodipine, HCTZ, Jardiance, lisinopril, metformin, rosuvastatin, and baby aspirin.
- Discussed with podiatry. He has right great toe osteomyelitis and will need amputation this admission once optimized from a cardiac standpoint. Continue wound care
- he has poor insight into severity of his medical issues. discusses he would like to go home as soon as possible so he can get back to work. we discussed that he will likely be here for several more days.
Progress Note - Hand Fabric Cutter
Subjective
Date of Service: March 06, 2025
Denies chest pain. Reports significant urine output and improvement in lower extremity edema
Objective
Labs:
03/06/25 02:49
03/06/25 02:49
Labs
Hgb 14.0 g/dL (13.0-18.0) 03/06/25 02:49
Hct 41.9 % (39.0-52.0) 03/06/25 02:49
Plt Count 231 10^3/uL (130-400) 03/06/25 02:49
Sodium 138 mmol/L (135-145) 03/06/25 02:49
Potassium 3.6 mmol/L (3.5-5.1) 03/06/25 02:49
BUN 14 mg/dl (9-20) 03/06/25 02:49
Creatinine 0.8 mg/dL (0.7-1.3) 03/06/25 02:49
Glucose 119 mg/dl (70-99) H 03/06/25 02:49
Troponins
03/04/25 03/04/25 03/05/25
17:22 23:56 03:30
Troponin I 0.083 H* 0.088 H* 0.079 H*
Vital Signs and I&O:
Vital Signs
Temp Pulse Resp BP Pulse Ox
98.2 F 98 18 145/93 94
03/06/25 10:49 03/06/25 08:58 03/06/25 10:49 03/06/25 08:58 03/06/25 10:49
Vital Signs
Temp Pulse Resp BP Pulse Ox
98.2 F 98 18 145/93 94
03/06/25 10:49 03/06/25 08:58 03/06/25 10:49 03/06/25 08:58 03/06/25 10:49
Intake & Output
03/04/25 03/05/25 03/06/25 03/07/25
07:59 07:59 07:59 07:59
Intake Total 480 / 480 530 / 530
Output Total 3350 / 3350 6690 / 6690 2800 / 2800
Balance -2870 / -2870 -6160 / -6160 -2800 / -2800
Physical Exam
Physical Exam
GEN: No distress, awake, alert, oriented x3. Obese
HEENT: supple, anicteric, mmm, EOMI
LUNGS: CTA bilaterally, no wheezes/rales
CV: Reg, S1/S2, no murmur
ABD: soft, BS+, NT/ND
EXT: No cyanosis, clubbing. 3+ edema of bilateral lower extremity to thigh
NEURO: Gross non-focal
SKIN: Warm, pink, dry. No rash
[2025-03-06 12:15] LABS: Glucose - Point of Care 171 mg/dl (70-99)
[2025-03-06] MEDS: NOVOLOG FLEXPEN-LOW RESISTANCE 1 UNITS SC (12:15)
[2025-03-06] MEDS: KCL 20 MEQ PO (12:16)
[2025-03-06] MEDS: ALDACTONE 12.5 MG PO (12:24)
--- NOTE | 2025-03-06 12:53 | W.PN.UPDATE ---
Update Note
Progress Note Update
Had discussion with pt on phone about mri and amp. Pt states he wants to wait for amp so he can make arrangements at home. I explained should get done on this admit so it doesnt get worse, etc. Pt understands risks of waiting. Will d/w pt again
after cath
--- NOTE | 2025-03-06 14:40 | PN.CDI ---
CDI
- -
CDI:
Physician Documentation Request
Admit Date: 03/04/25 20:08
Dear Doctor Adelia,
Please review the following and provide your response in the progress notes.
Clinical Indicators:
Pt admitted with CHF/ Diabetic foot ulcer with acute osteomyelitis of right toe
ECHO 03/05, ' Severely reduced left ventricular systolic function. Left ventricular ejection fraction is 27%.'
Progress note 03/06, ' #Acute HFpEF exacerbation..'
Cardiology progress note 03/06,' Acute HFrEF...ECHO 03/05/25: EF 27%, global hypokinesis,...Diuresing well with IV Lasix 40 mg twice daily ...'
Please provide further specificity regarding the most likely type and acuity of CHF you are evaluating, treating or monitoring.
Acute Systolic CHF
Acute HFpEF exacerbation ( no change in documentation)
Other ( please specify)
Use of terms such as suspected, likely, concern for, or probable (associated with a specific diagnosis that is being evaluated, monitored, or treated as if it exists) are acceptable and can be coded in the inpatient setting, when documented at the
time of discharge.
Thank you,
Arabella Arzate RN
CDI Specialist
[place] [facility]
Please use your independent medical judgment in providing your response.
--- NOTE | 2025-03-06 16:08 | PHA.VAN.FU ---
Vancomycin Assessment / Plan
- Assessment
Renal Function: Stable (0.8)
WBC's are: WNL (9.0)
In the past 24 hrs, patient has been: Afebrile
Concomitant Antimicrobials: Piperacillin/Tazobactam
- Dosing Plan
Continue: Vanco 1750mg Q12H
- Monitoring Plan
No level(s) ordered at this time: Consider in the next few days
- Follow Up
Pharmacy will continue to follow.
Vancomycin Follow UP
- -
Patient Age: 44
Patient Sex: Male
Vancomycin Day #: 2
Indication: Bone And Joint
Requesting Provider: RASHEL
Height / Weight:
Height 6 ft 1 in
Actual Weight 130 kg
Pertinent Past Medical History: DM
- Vital Signs / Lab Results
Temp Pulse Resp BP Pulse Ox
99 F 92 18 145/98 92
03/06/25 15:02 03/06/25 14:00 03/06/25 15:02 03/06/25 12:19 03/06/25 15:02
Lab Results - Hematology
03/04/25 03/05/25 03/06/25
17:22 03:30 02:49
WBC 9.4 8.3 9.0
Lab Results - Chemistry
03/04/25 03/05/25 03/06/25
17:22 03:30 02:49
BUN 15 14 14
Creatinine 0.8 0.8 0.8
Estimated Creat Clear > 125 > 125
Albumin 3.7 3.7 3.7
Microbiology Results
03/05/25 11:39 Wound Culture - Preliminary
Toe Gram Stain - Preliminary
03/05/25 10:39 Blood Culture - Preliminary
Blood/Venous No Growth in 24 hours- Final report to follow
03/05/25 09:33 Blood Culture - Preliminary
Blood/Venous No Growth in 24 hours- Final report to follow
03/04/25 23:56 MRSA Screen - Final
Nose Staph aureus MRSA
[2025-03-06] MEDS: OCEAN, SALINE MIST 1 SPRAYS NASAL ×2 (16:32→19:49)
[2025-03-06 17:20] LABS: Glucose - Point of Care 205 mg/dl (70-99)
[2025-03-06] MEDS: NOVOLOG FLEXPEN-LOW RESISTANCE 2 UNITS SC (17:21)
[2025-03-06] MEDS: CRESTOR 20 MG PO (17:30)
[2025-03-06] MEDS: LOVENOX 40 MG SC (17:30)
[2025-03-06] MEDS: COREG 12.5 MG PO (19:49)
--- NOTE | 2025-03-06 21:04 | PTCARENOTE ---
Rec'd pt at change of shift. Pt AAO*3, VSS, and SR on TELE monitor. Pt denies any pain or discomfort. Pt aware on NPO status after midnight and verbalized understanding of care plan. Pt now resting at bedside with call jones in reach. Plan of
care ongoing, see MAR and flowchart for full pt care and assessment.
[2025-03-06 21:44] LABS: Glucose - Point of Care 168 mg/dl (70-99)
[2025-03-07] VITALS (17 sets, daily range): BP systolic 135–177; BP diastolic 79–129; BMI 37.0
[2025-03-07 03:33] LABS: % Basophils 0.8 % (0-2); % Eosinophils 2.8 % (0-6); % Immature Granulocytes 0.2 % (0-0.5); % Lymphocytes 24.7 % (20.5-51.1); % Monocytes 11.6 % (1.7-9.3); % Neutrophils 59.9 % (42.2-75.2); Absolute Basophils 0.1 10^3/uL (0-0.2); Absolute Eosinophils 0.2 10^3/uL (0-0.7); Absolute Lymphocytes 2.1 10^3/uL (1.2-3.4); Absolute Neutrophils 5.1 10^3/uL (1.4-6.5); Hematocrit 42.9 % (39.0-52.0); Hemoglobin 14.5 g/dL (13.0-18.0); Mean Corp Hgb Conc. 33.8 g/dL (33.0-37.0); Mean Corpuscular Hgb 30.4 pg (27.0-31.0); Mean Corpuscular Volume 89.9 fL (80.0-94.0); Mean Platelet Volume 11.3 fL (7.4-10.4); Nucleated Red Blood Cells % 0 % (-); Platelet Count 219 10^3/uL (130-400); Red Blood Cell Count 4.77 10^6/uL (4.70-6.10); Red Cell Dist. Width 14.4 % (11.5-14.5); White Blood Cell Count 8.6 10^3/uL (4.8-10.8)
[2025-03-07 04:00] LABS: ALT (SGPT) 14 U/L (0-50); AST (SGOT) 18 U/L (17-59); Albumin 3.4 g/dl (3.5-5.0); Alkaline Phosphatase 104 U/L (38-126); Blood Urea Nitrogen 17 mg/dl (9-20); Calcium 9.7 mg/dl (8.4-10.2); Carbon Dioxide 25 mmol/L (22-30); Chloride 102 mmol/L (98-107); Estimated Creatinine Clearance 119 ml/min; Glucose 139 mg/dl (70-99); Potassium 3.9 mmol/L (3.5-5.1); Sodium 140 mmol/L (135-145); Total Bilirubin 1.3 mg/dl (0.2-1.3); Total Protein 6.4 g/dl (6.3-8.2); eGFR > 60.00
[2025-03-07] MEDS: ZOSYN 50 IV (05:12)
[2025-03-07] MEDS: VANCOCIN 535 MG IV ×2 (06:14→17:55)
[2025-03-07 07:23] LABS: Glucose - Point of Care 131 mg/dl (70-99)
[2025-03-07] MEDS: NOVOLOG FLEXPEN-LOW RESISTANCE SC ×3 (08:14→17:22)
[2025-03-07] MEDS: ASPIR LOW (ENTERIC COATED) 81 MG PO (08:31)
[2025-03-07] MEDS: ALDACTONE 12.5 MG PO (08:31)
[2025-03-07] MEDS: COREG 12.5 MG PO ×2 (08:32→20:54)
[2025-03-07] MEDS: ZESTRIL 20 MG PO (08:32)
[2025-03-07] MEDS: HYDROPHOR 1 APPLIC TOPICAL (08:33)
[2025-03-07] MEDS: FARXIGA 10 MG PO (08:33)
[2025-03-07] MEDS: LASIX 40 MG IV ×2 (08:37→17:09)
[2025-03-07 11:07] LABS: Glucose - Point of Care 134 mg/dl (70-99)
--- NOTE | 2025-03-07 11:15 | PTCARENOTE ---
Report given to union laborer RN, Pt taken to card union laborer.
[2025-03-07 11:31] LABS: Vancomycin Peak 33.1 ug/ml (18-26)
--- NOTE | 2025-03-07 11:59 | W.PN.HOSP.TC ---
Today's Communication/Plan
-
cont Abx
ID consult DM DIRECTOR OF CONTRACTS consult
Assessment / Plan
Assessment / Plan
44yo M with PMHx of DM, HTN, CHF came to the hospital with ongoing SOB. He lost follow up with PCP 1 year ago and ran out of his meds appr 6 month before this admission. Could not follow up with his chronic health problems due to family reasons and
finally found availability in his work and family schedule to come to ED. Found in mild CHF. Also had R great toe wound for 2-3 months, with foul smelling discharge, concerning for diabetic wound with OM.
A/P:
#Acute HFrEF exacerbation
#Troponin elevation, most likely 2/2 CHF
#Sinus tachycardia
#Essential HTN
Lasix, daily weight, I&O, follow Cr, electrolytes
Low salt diet
Echo: EF 15% with global hypokinesis
Cardiology consult: cath on 03/07/25
ASA, statin, BB, spironolactone,
TSH WNL
LDL 112
troponin flat 0.079-0.088-0.[address] without [address] elevation
#R great toe diabetic wound with acute OM
Bcx NTD
woundCx: GPR, GNR, GPC
Vanco/Zosyn
MRSA screen pos
Podiatry consult: recommended for surgical mg, but patient is willing to delay, so might need extended home IV Abx before he will be ready for the procedure. ID consultmt
MRI proved initial stage of OM
US LE arterial without PAD
#DM type 2 with unknown complications
Accuchecks, insulin SS, DM diet
HgbA1c 9.9% - will start on metformin and Farxiga
DM DIRECTOR OF CONTRACTS consult
#Epistaxis
minimal
most probably 2/2 blowing the nose
monitor
#Indirect bilirubinemia - improved
#Elevated Alk.phos - resolved
LDH mildly elevated as well as mild retics elevation and total bili 1.4 - most likely reaction to acute disease
DVT ppx lovenox
Full code
I have spent at least 35min reviewing chart, test results, communication with consultants and providing direct patient care
Anticipated Discharge: > 48 hours
Subjective/Interval History
-
Date of Service: March 07, 2025
Objective Data
-
Labs:
Laboratory Results
03/07/25
02:59
WBC 8.6
Hgb 14.5
Hct 42.9
Plt Count 219
Sodium 140
Potassium 3.9
Chloride 102
Carbon Dioxide 25
BUN 17
Creatinine 1.1
Glucose 139 H
Calcium 9.7
Total Bilirubin 1.3
AST 18
ALT 14
Alkaline Phosphatase 104
Vital Signs:
Vital Signs
Temp Pulse Resp BP Pulse Ox
98.1 F 74 18 147/94 96
03/07/25 11:20 03/07/25 11:02 03/07/25 11:20 03/07/25 11:02 03/07/25 11:20
I&O
03/06/25 03/07/25 03/08/25
06:59 06:59 06:59
Intake Total 530 / 530 240 / 240
Output Total 6690 / 6690 6475 / 6475 700 / 700
Balance -6160 / -6160 -6235 / -6235 -700 / -700
Review of Systems
-
History Source: Patient
All other systems: Reviewed and negative
Physical Exam
-
General: No Apparent Distress
HEENT: Normocephalic
Respiratory: Clear to Auscultation
GI: Soft, Nontender and Nondistended
Musculoskeletal: No Clubbing, No Cyanosis and No Edema
Neuro: Awake, Alert, Oriented and AO x 3
Psych: Calm
[2025-03-07 12:31] LABS: ACT-LR - POC 276 Seconds (116-155)
[2025-03-07 12:39] LABS: ACT-LR - POC 292 Seconds (116-155)
[2025-03-07 13:42] LABS: ACT-LR - POC > 397 Seconds (116-155)
--- NOTE | 2025-03-07 14:11 | PN.DE.MGMTRT ---
Insulin Management
- -
03/07/2025 Diabetes Management Consult
Patient admitted 03/04 with breathing problem, leg swelling - mild chf. PMH CHF, diabetes, HTN, morbid obesity. Prior to admission was taking no medication for diabetes. A1C 9.9%, cr 1.1, eGFR > 60.
Patient is awake alert and oriented able to discuss diabetes care. States his primary doctor retired so he had no doctor, he ran out of medication ~ 6+ months ago. Primary doctor had prescribed metformin and Jardiance for diabetes. Patient states
he has a [employer] glucose monitor and would prefer to stay with that.
Patient is s/p cardiac cath with stent. Farxiga has been started this AM. Glucose today 131 and 134. Will continue Farxiga daily. Will start metformin 1000 mg BID on Tuesday AM.
Provided diabetes education booklet and reviewed A1C of 9.9 and average glucose for at least 3 months. He immediately acknowledged he needed to get it down to less than 7%. Reviewed action of both medications and importance of taking them as
prescribed. Reviewed importance of testing glucose in pattern provided, fasting and 2 hours after a meal so that he can have data to take to first office visit with new primary provider.
Patient is very receptive.
Discussed with nurse.
Will follow.
Diabetes History
- -
Type of Diabetes: 2
Pre-Admission Diabetes Regimen
03/07/25
02:59
Creatinine 1.1
Lab Results
Hemoglobin A1c 9.9 % (4.0-5.6) H 03/05/25 03:30
Insulin Pump Settings
IP Diabetes Regimen
03/06/25 03/06/25 03/07/25
17:19 21:42 02:59
Glucose 139 H
POC Glucose 205 H 168 H
03/07/25 03/07/25
07:18 11:05
Glucose
POC Glucose 131 H 134 H
Meal type: Breakfast
Meal type: Dinner
Amount consumed: 0
Amount consumed: 100%
Patient Education
--- NOTE | 2025-03-07 14:13 | PTCARENOTE ---
Rec't Pt from brine room laborer, s/p card cath. R femoral dsg D+I, R radial band intact and dry. +radial and +DP pulses.
--- NOTE | 2025-03-07 14:36 | CON.ID ---
Consultation
-
Date/Time Consultation Requested: 03/07/2025 10:55
Date/Time Consultation Performed: 03/07/2025 12:51
Requesting Provider: Dr. Delvalle
Performing Provider: Dr. Alvarado
Reason for Consultation: Right hallux osteomyelitis
Chief Complaint / Past History
History of Present Illness
Mitesh Stack is a 44-year-old man being evaluated at the request of Dr. Delvalle in regards to right hallux osteomyelitis. History is obtained from chart review, along with patient interview.
The patient has an underlying history of diabetes mellitus along with morbid obesity and presented to the emergency room at [facility] on 03/04 secondary to shortness of breath and leg swelling which had evidently been going on for the prior
2 months. He sought medical care when he found it difficult to perform his usual ADLs. He admitted to being off his medications for diabetes and hypertension for at least the last 6 months secondary to a change in employment and the loss of his
PCP.
He admits to having a history of right hallux callus for several years but over the past several months it has broken open, and has been draining for the past 2 months. He reports some red-brown drainage. He additionally has admitted to some
erythema extending up his foot. He denies any fevers or chills. He denies any groin pain.
He has been evaluated by Podiatry, and workup thus far has included culture and MRI. MRI currently reveals the presence of early osteomyelitis. Infectious Diseases is asked to manage further antibiotic therapy.
Past History
Additional Past Medical History:
DM
HTN
Obesity
Past Surgical History: None
Allergy History:
No Known Allergies Allergy (Verified 03/04/25 18:41)
Medications Reviewed: Yes
Current Antibiotics:
Vancomycin
Zosyn
Social History
Tobacco: Non-Smoker
Alcohol: Occasional
Drug: None
Personal: Single
Living: With Family
Employment: Employed
Family History
Family History: Not Pertinent
Review of Systems
Vital Signs
Temp Pulse Resp BP Pulse Ox
98.1 F 74 18 147/94 96
03/07/25 11:20 03/07/25 11:02 03/07/25 11:20 03/07/25 11:02 03/07/25 11:20
Physical Exam
Physical Exam
Constitutional: No Acute Distress, Comfortable and Non-toxic
Eyes: Pupils Equal, Pupils Round and No Conjunctival Hemorrhage
Oral: No Thrush and No Ulcers
Cardiovascular: Regular Rate and S1/S2; Negative S3/S4
Pulmonary: Clear; Negative Wheezes, Rales or Rhonchi
Gastrointestinal: Soft, Non Tender, Non Distended and Normal Bowel Sounds
Genito-Urinary: Negative CVA Tenderness
Extremities: Edema, Erythema (right hallux) and Venous Insufficiency; Negative Cyanosis
Wound: Other (right hallux with plantar 1.3cm wound. Positive [id number].)
Neurological: Awake and Alert
Psychological: Calm
.
Lab / Diagnostic Study Results
03/07/25 02:59
03/07/25 02:59
Abs Immat Gran (auto) 0.0 10^3/uL (0-0.05) 03/07/25 02:59
Absolute Neuts (auto) 5.1 10^3/uL (1.4-6.5) 03/07/25 02:59
Absolute Lymphs (auto) 2.1 10^3/uL (1.2-3.4) 03/07/25 02:59
Absolute Monos (auto) 1.0 10^3/uL (0.1-0.6) H 03/07/25 02:59
Absolute Basos (auto) 0.1 10^3/uL (0-0.2) 03/07/25 02:59
Immature Gran % 0.2 % (0-0.5) 03/07/25 02:59
Neutrophils % 59.9 % (42.2-75.2) 03/07/25 02:59
Lymphocytes % 24.7 % (20.5-51.1) 03/07/25 02:59
Monocytes % 11.6 % (1.7-9.3) H 03/07/25 02:59
Eosinophils % 2.8 % (0-6) 03/07/25 02:59
Basophils % 0.8 % (0-2) 03/07/25 02:59
ESR 11 mm/hour (0-20) 03/04/25 17:22
C-Reactive Protein 12.10 mg/L (0.0-10.00) H 03/04/25 17:22
Microbiology Results
Micro:
03/05/25 11:39 Wound Culture - Preliminary
Toe Staphylococcus aureus
Streptococcus agalactiae
Group C Streptococcus
Gram Stain - Preliminary
03/05/25 10:39 Blood Culture - Preliminary
Blood/Venous No Growth in 48 hours- Final report to follow
03/05/25 09:33 Blood Culture - Preliminary
Blood/Venous No Growth in 48 hours- Final report to follow
03/04/25 23:56 MRSA Screen - Final
Nose Staph aureus MRSA
Imaging:
03/05/2025 MRI right lower extremity: Soft tissue swelling/edema of the great toe, with a soft tissue defect along the medial plantar aspect. Under the soft tissue defect there is a small focus of confluent low T1 and T2/STIR hyperintense signal
favored to represent early acute osteomyelitis. Please see full dictation for additional detail.
Assessment / Plan
Right hallux osteomyelitis
Chronic right foot diabetic foot ulcer
Acute CHF exacerbation
CAD; s/p cardiac catheterization
DM�uncontrolled; HbA1c = 9.9
HTN.
Recommendations:
Patient reports that he currently cannot undergo amputation of the right hallux and would favor antibiotic therapy.
Cultures reviewed, and wound culture reveals the presence of Staph aureus, group B strep and group C strep.
Narrow zosyn to cefazolin.
Continue vancomycin while final susceptibilities of Staph aureus are pending.
Patient understands that amputation would likely be best, and given the timeframe of the infection, cure cannot be guaranteed with medical therapy alone.
Patient has been informed that he would likely need 6-week course of antibiotics.
[2025-03-07] MEDS: ZOSYN IV (15:04)
[2025-03-07 15:08] LABS: Glucose - Point of Care 97 mg/dl (70-99)
--- NOTE | 2025-03-07 17:02 | CM ---
srinivasa hernandez at [facility] [address]- his copay is ZERO dollars. they are ordering the medication to be in stock tomorrow.
[2025-03-07] MEDS: ANCEF 10 IV ×2 (17:09→23:54)
--- NOTE | 2025-03-07 17:11 | PTCARENOTE ---
1630 R femoral dsg with small amt bloody drainage. Dsg gradually became saturated. Dsg changed. Hemostasis pad applied, new DSD and tegaderm applied. 1650 R femoral site still oozing. Loida Morales notified, manual pressure held x 10 min. Hemostasis pad
and new dsg applied.
[2025-03-07] MEDS: CRESTOR 20 MG PO (17:13)
[2025-03-07] MEDS: LOVENOX 40 MG SC (17:13)
[2025-03-07 17:21] LABS: Glucose - Point of Care 130 mg/dl (70-99)
[2025-03-07] MEDS: APRESOLINE 10 MG IV (17:54)
--- NOTE | 2025-03-07 20:00 | PTCARENOTE ---
Received pt from previous shift. Systems reviewed, see flowsheets. Vascular checks performed with gisela LUCIANO. R femoral dressing with sanguinous drainage, marked with sharpee. Pt in NSR with 1st degree HB and prolonged QT on monitor. Lungs clear on
RA. No new complaints at this time, will continue to monitor.
[2025-03-07] MEDS: NORVASC 5 MG PO (20:53)
[2025-03-07] MEDS: BRILINTA 90 MG PO (20:54)
--- NOTE | 2025-03-07 21:01 | ITS.CL.CATH ---
[facility] - Catheterization
Cardiac Catheterization
Procedure Report:
LEFT HEART CATH AND CORONARY INTERVENTION
Date of Procedure: March 07, 2025
Referring: Dr. Siva Castro
PROCEDURES:
1. Left heart catheterization with coronary and single-plane left ventriculography
2. Successful stenting of large obtuse marginal branch with a 2.5 x 34 mm Mariusz stent that was implanted at nominal pressures and postdilated with a 3.0 mm noncompliant balloon
3. Intravascular ultrasound post stent appointment
INDICATION: This is a 44-year-old gentleman with a past medical history notable for hypertension, hyperlipidemia, and diabetes who presented to [facility] for evaluation of shortness of breath and was found to have newly diagnosed severe LV
dysfunction with an estimated ejection fraction of 27%. The ventricle was globally hypokinetic. The following LVEF was new when compared to his last echocardiogram from 08/2022. He did experience low grade substernal chest pressure with
low-level positive troponin measuring 0.088 ng/mL
ACCESS: Right radial artery; access unsuccessful. Arterial access was then obtained in the right common femoral artery using ultrasound guidance and micropuncture technique. A 6 [place] sheath was inserted.
HEMODYNAMICS (mmHg):
AO (s/d, m) : 140/88
LV (s/d) : 137/20
LVEDP : 34
CORONARY FINDINGS
Dominance: Right
LEFT MAIN: Short and unobstructed
LEFT ANTERIOR DESCENDING: The LAD is a large-caliber vessel that has diffuse noncritical luminal irregularities over its course. The LAD tapers beyond the largest diagonal branch in the mid vessel to a rather small caliber vessel as it approaches
and the apex
CIRCUMFLEX: The circumflex is a medium caliber nondominant vessel. OM1 is very small. OM 2 has a 95% stenosis as it arises from the circumflex and 60% stenosis in the midportion of the vessel.
RIGHT CORONARY: The right coronary artery is a large-caliber dominant vessel that has only minor luminal irregularities over its course with no focal obstructive stenosis
VENTRICULOGRAPHY: Left ventriculography is performed in an ALANIZ projection. At the digital single-plane left ventricular ejection fraction is estimated at 20%. The ventricle is globally hypokinetic with severe anterolateral hypokinesis
ANGIOPLASTY PROCEDURE DETAIL: Upon review of the diagnostic catheterization films the decision was made to proceed with percutaneous revascularization of the subtotally occluded OM 2. A 180 mg loading dose of ticagrelor was administered and
intravenous heparin was given to maintain a therapeutic ACT throughout the procedure. The origin of the circumflex was cannulated with a 6 [place] AL 2 guiding catheter. The ostial stenosis in the circumflex proved very difficult to cross and
required multiple guidewires. We initially tried to cross the stenotic segment with a BMW, a Fielder XT, and a Whisper wire. All were unsuccessful. A Quick Cross microcatheter was then advanced over a guidewire into the mid circumflex and
successfully crossed the proximal OM2 stenosis with a Fielder XT wire which was advanced into the distal vessel. Balloon predilation was performed using a 2.0 mm Euphora balloon. A 2.5 x 34 mm Mariusz stent was then advanced over the guidewire and
position with angiographic and fluoroscopic guidance. The stent was positioned at the ostium of OM 2 and covered the 60% stenosis in the midportion of the vessel. The Mariusz stent was implanted at nominal pressures. Intravascular ultrasound was
then performed confirming that the distal vessel reference diameter was around 2.5 mm while proximally the OM 2 measured around 3.4 mm in diameter. The stented segment was postdilated with a 3.0 x 20 mm noncompliant balloon at 8 anamika distally and 14
anamika in the midportion of the stent and 16 anamika in the proximal to mid stented segment. The final angiographic result was excellent.
SEDATION: 110 minutes of procedural sedation was utilized. An independent medical billing specialist was present to assist with and help manage the patient's level of consciousness and physiologic status
RADIATION SUMMARY: Fluoro Time (min): 23.4, Dose (mGy): 2510, DAP (Gy.cm2) : 154
CONCLUSIONS
1. Dilated cardiomyopathy with estimated ejection fraction of 20%: LV dysfunction out of proportion to extent of coronary artery disease
2. Coronary artery disease with high-grade proximal OM 2 and mid OM 2 stenosis which were successfully stented with a 2.5 x 34 mm [place] stent that was implanted at nominal pressures and postdilated to high pressures with a 3.0 mm noncompliant
balloon using intravascular ultrasound to guide post dilation
RECOMMENDATIONS
1. Uninterrupted dual antiplatelet therapy for 1 year
2. Guideline directed medical therapy for combined ischemic/nonischemic cardiomyopathy
Copy to: Dr. Siva Castro
--- NOTE | 2025-03-07 21:30 | PTCARENOTE ---
R femoral dressing saturated. Dressing changed. Hemostasis pad applied. Will continue to monitor.
[2025-03-07 22:19] LABS: Vancomycin Peak 35.2 ug/ml (18-26)
[2025-03-07 23:03] LABS: Glucose - Point of Care 121 mg/dl (70-99)
[2025-03-08] VITALS (7 sets, daily range): BP systolic 119–153; BP diastolic 68–90; BMI 35.7
[2025-03-08 04:14] LABS: % Basophils 0.8 % (0-2); % Immature Granulocytes 0.3 % (0-0.5); % Lymphocytes 12.2 % (20.5-51.1); % Monocytes 11.5 % (1.7-9.3); % Neutrophils 73.2 % (42.2-75.2); Absolute Basophils 0.1 10^3/uL (0-0.2); Absolute Eosinophils 0.2 10^3/uL (0-0.7); Absolute Lymphocytes 1.2 10^3/uL (1.2-3.4); Absolute Monocytes 1.1 10^3/uL (0.1-0.6); Absolute Neutrophils 7.1 10^3/uL (1.4-6.5); Hematocrit 43.8 % (39.0-52.0); Hemoglobin 14.7 g/dL (13.0-18.0); Mean Corp Hgb Conc. 33.6 g/dL (33.0-37.0); Mean Corpuscular Volume 89.4 fL (80.0-94.0); Mean Platelet Volume 11.6 fL (7.4-10.4); Nucleated Red Blood Cells % 0 % (-); Platelet Count 224 10^3/uL (130-400); Red Cell Dist. Width 14.3 % (11.5-14.5); White Blood Cell Count 9.8 10^3/uL (4.8-10.8)
[2025-03-08 04:44] LABS: Blood Urea Nitrogen 18 mg/dl (9-20); Calcium 9.8 mg/dl (8.4-10.2); Carbon Dioxide 22 mmol/L (22-30); Chloride 101 mmol/L (98-107); Estimated Creatinine Clearance > 125 ml/min; Glucose 107 mg/dl (70-99); Potassium 3.8 mmol/L (3.5-5.1); Sodium 137 mmol/L (135-145); eGFR > 60.00
[2025-03-08 04:52] LABS: Vancomycin Trough 21.2 ug/ml (5-20)
--- NOTE | 2025-03-08 07:16 | PN.DE.MGMTRT ---
Insulin Management
- -
03/08/2025 Diabetes Management Consult Follow up
Patient admitted 03/04 with breathing problem, leg swelling - mild chf. PMH CHF, diabetes, HTN, morbid obesity. Prior to admission was taking no medication for diabetes. A1C 9.9%, cr 1.1, eGFR > 60.
Patient is awake alert and oriented able to discuss diabetes care. States his primary doctor retired so he had no doctor, he ran out of medication ~ 6+ months ago. Primary doctor had prescribed metformin and Jardiance for diabetes. Patient states
he has a Gigalocal glucose monitor and would prefer to stay with that.
Patient is s/p cardiac cath with stent 03/07. Farxiga has been started this AM.
Cr .9, eGFR > 60. Glucose yesterday 97 to 134. Will continue Farxiga daily. Will start metformin 1000 mg BID on Tuesday AM.
Provided diabetes education booklet and reviewed A1C of 9.9 and average glucose for at least 3 months. He immediately acknowledged he needed to get it down to less than 7%. Reviewed action of both medications and importance of taking them as
prescribed. Reviewed importance of testing glucose in pattern provided, fasting and 2 hours after a meal so that he can have data to take to first office visit with new primary provider.
Patient is very receptive.
Discussed with nurse.
Will follow.
Diabetes History
- -
Type of Diabetes: 2
Pre-Admission Diabetes Regimen
03/08/25
03:55
Creatinine 0.9
Lab Results
Hemoglobin A1c 9.9 % (4.0-5.6) H 03/05/25 03:30
Insulin Pump Settings
IP Diabetes Regimen
03/07/25 03/07/25 03/07/25
07:18 11:05 15:07
Glucose
POC Glucose 131 H 134 H 97
03/07/25 03/07/25 03/08/25
17:20 23:01 03:55
Glucose 107 H
POC Glucose 130 H 121 H
Meal type: Dinner
Meal type: Breakfast
Amount consumed: 100%
Amount consumed: 0
Patient Education
[2025-03-08 08:12] LABS: Glucose - Point of Care 94 mg/dl (70-99)
--- NOTE | 2025-03-08 08:15 | W.PN.CARDCBS ---
Addendum entered and electronically signed by Samuel Marrufo MD 03/08/25 10:54:
I saw and examined the patient.
The SALES AND MARKETING SPECIALIST or PA's note was reviewed and I agree with the note.
Comment: General: Well developed, well nourished in NAD.
Neck: Supple, no JVD, HJR, carotids +2 B/L, no bruits bilaterally.
Heart: Non displaced PMI, RRR, no murmurs, No S3, S4, no rubs.
Lungs: Scattered rhonchi
Extremities: Mild lower extremity edema bilaterally.
Neuro: Grossly nonfocal, awake, alert and oriented x3.
He has had significant diuresis and reports that he has had his dry weight of 270 pounds. Will give 1 more day of IV Lasix and changed to oral Lasix on 03/09. He should be stable for discharge from a cardiology viewpoint on 03/09.
Original Note:
Today's Communication / Plan
-
Continue diuresis w/ IV lasix 40mg BID
GDMT w/ lisinopril, coreg, spironolactone, and farxiga
Now on DAPT following PCI of OM2 w/ aspirin, brilinta
Abx per ID for osteomyelitis
Impression / Plan
-
Primary Monotype Operator: none, initially seen by Dr. Castro
Assessment:
Presented with VELASQUEZ
Hypertensive urgency
Acute HFrEF
Elevated troponin
Combined ischemic/nonischemic cardiomyopathy
Sinus tachycardia
R diabetic foot wound with osteomyelitis
Uncontrolled DM2 with diabetic neuropathy
HLD
Obesity
ECHO 2021: EF 55%, mild concentric LVH, trace MR, mildly dilated LA, normal right heart
ECHO 03/05/2025: EF 27%, global hypokinesis, mod enlarged LA, mildly enlarged RA, no significant valvular disease, trace pericardial effusion
L&RHC 03/07/2025: LM: Short and unobstructed. LAD: Diffuse noncritical luminal irregularities over its course. Circ: OM2 has a 95% as it arises from circumflex and 60% stenosis in midportion of the vessel. RCA: Minor luminal irregularities. LVEDP 34
mmHg. Angioplasty: High grade proximal and mid OM2 stenosis which was successfully stented with a 2.5 x 34 mm [place] DEVEN.
Plan:
-Presented with VELASQUEZ and LE edema. Ran out of all medications, previously was taking amlodipine, HCTZ, Jardiance, lisinopril, metformin, rosuvastatin, and baby aspirin.
-Diuresing with IV lasix 40mg BID. Weight down another 10 lbs overnight if accurate, down to 270 lbs 03/08.
-Creat stable at 0.8. Continue to follow daily weights, I&Os,
-CHF education.
-Echo 03/05 showed EF down to 27%, new compared to prior echo in 2021.
-Continue medical therapy with Coreg, lisinopril, spironolactone, and farxiga.
-Underwent L & RHC 03/07 which revealed high grade proximal OM2 and mid OM2 stenosis which was successfully stented as above.
-Continue DAPT with aspirin, Brilinta.
-Cardiac rehab c/s
-LDL 112. Continue Crestor 20mg daily.
-He also has R diabetic foot wound w/ osteomyelitis of R hallux. Had discussed amputation, but he states he needs more time to prepare for this. Continue abx per ID.
HPI: Patient is a 44 yo M with PMH of HTN, HLD, DM2 who states his PCP retired 11/2023 and has not seen provider since that time. He ran out of his medications, which include amlodipine, HCTZ, Jardiance, lisinopril, metformin, rosuvastatin, and baby
aspirin, approximately 6 months ago. He reports noting SOB and LE edema, worsening over the last 2 months, particularly worse several days prior to admission. Reports heart pounding, LE edema, weight gain, abd bloating, and orthopnea. No CP. BPs
elevated on arrival at 181/125. ProBNP 4280 and CXR with mild edema. Cardiology consulted for assistance with mgmt. He also reports a wound on his R foot which he initially felt was healing however opened back up. No fevers/chills.
Progress Note - Monotype Operator
Subjective
Date of Service: March 08, 2025
Feeling well. No chest pain, breathing and edema improving.
Objective
Labs:
03/08/25 03:55
03/08/25 03:55
Labs
Hgb 14.7 g/dL (13.0-18.0) 03/08/25 03:55
Hct 43.8 % (39.0-52.0) 03/08/25 03:55
Plt Count 224 10^3/uL (130-400) 03/08/25 03:55
Sodium 137 mmol/L (135-145) 03/08/25 03:55
Potassium 3.8 mmol/L (3.5-5.1) 03/08/25 03:55
BUN 18 mg/dl (9-20) 03/08/25 03:55
Creatinine 0.9 mg/dL (0.7-1.3) 03/08/25 03:55
Glucose 107 mg/dl (70-99) H 03/08/25 03:55
Vital Signs and I&O:
Vital Signs
Temp Pulse Resp BP Pulse Ox
98.2 F 83 20 134/75 97
03/08/25 08:04 03/08/25 03:41 03/08/25 08:04 03/08/25 03:34 03/08/25 08:04
Vital Signs
Temp Pulse Resp BP Pulse Ox
98.2 F 83 20 134/75 97
03/08/25 08:04 03/08/25 03:41 03/08/25 08:04 03/08/25 03:34 03/08/25 08:04
Intake & Output
03/06/25 03/07/25 03/08/25 03/09/25
06:59 06:59 06:59 06:59
Intake Total 530 / 530 240 / 240 1020 / 1020
Output Total 6690 / 6690 6475 / 6475 5550 / 5550
Balance -6160 / -6160 -6235 / -6235 -4530 / -4530
Physical Exam
Physical Exam
GEN: No distress, awake, alert, oriented x3
HEENT: supple, anicteric, mmm, EOMI
LUNGS: CTA bilaterally, no wheezes/rales
CV: Reg, S1/S2, no murmur
EXT: No cyanosis, clubbing. 1+ edema of b/l LE
NEURO: Gross non-focal
SKIN: Warm, pink, dry. No rash
[2025-03-08] MEDS: NOVOLOG FLEXPEN-LOW RESISTANCE SC ×2 (08:40→17:44)
--- NOTE | 2025-03-08 08:51 | PHA.VAN.FU ---
Vancomycin Assessment / Plan
- Assessment
Renal Function: Stable (0.9)
WBC's are: WNL (9.8)
In the past 24 hrs, patient has been: Afebrile
Concomitant Antimicrobials: Cefazolin
- Assessment - Therapeutic Drug Monitoring
Extrapolated Cmax (mcg/mL): 35.2
Peak level was drawn: Appropriately (~2H after end of infusion)
Extrapolated Cmin (mcg/mL): 21.2
Trough Drawn: Appropriately
Calculated AUC (mcg*h/mL): 681
Calculated ke: 0.0843
Calculated half life (H): 8.2
Calculated Vd (L): 60.84
Calculated Vanc CL (ml/min): 85.45
- Dosing Plan
Adjust Regimen to: Vanco 1250mg Q12H Starting 03/08/25 1800
New Regimen Predicts: AUC (518), Peak (32.3), Trough (13.3)
- Monitoring Plan
No level(s) ordered at this time: Consider peak/trough following tomorrow PM dose
- Follow Up
Pharmacy will continue to follow.
Vancomycin Follow UP
- -
Patient Age: 44
Patient Sex: Male
Vancomycin Day #: 3
Indication: [facility]
Requesting Provider: RASHEL
Height / Weight:
Height 6 ft 1 in
Actual Weight 122.8 kg
Pertinent Past Medical History: DM
- Vital Signs / Lab Results
Temp Pulse Resp BP Pulse Ox
98.2 F 83 20 134/75 97
03/08/25 08:04 03/08/25 03:41 03/08/25 08:04 03/08/25 03:34 03/08/25 08:04
Lab Results - Hematology
03/06/25 03/07/25 03/08/25
02:49 02:59 03:55
WBC 9.0 8.6 9.8
Lab Results - Chemistry
03/06/25 03/07/25 03/08/25
02:49 02:59 03:55
BUN 14 18
Creatinine 0.8 1.1 0.9
Estimated Creat Clear > 125 119 > 125
Albumin 3.7 3.4 L
Microbiology Results
03/05/25 11:39 Wound Culture - Preliminary
Toe Staphylococcus aureus
Streptococcus agalactiae
Group C Streptococcus
Gram Stain - Preliminary
03/05/25 10:39 Blood Culture - Preliminary
Blood/Venous No Growth in 48 hours- Final report to follow
03/05/25 09:33 Blood Culture - Preliminary
Blood/Venous No Growth in 48 hours- Final report to follow
03/04/25 23:56 MRSA Screen - Final
Nose Staph aureus MRSA
Therapeutic Drug Monitoring
Vancomycin Peak 35.2 ug/ml (18-26) H 03/07/25 21:54
Vancomycin Trough 21.2 ug/ml (5-20) H* 03/08/25 03:55
[2025-03-08] MEDS: NORVASC 5 MG PO ×2 (08:53→20:56)
[2025-03-08] MEDS: ALDACTONE 12.5 MG PO (08:53)
[2025-03-08] MEDS: COREG 12.5 MG PO ×2 (08:53→20:56)
[2025-03-08] MEDS: ASPIR LOW (ENTERIC COATED) 81 MG PO (08:53)
[2025-03-08] MEDS: ANCEF 10 IV ×2 (08:53→16:29)
[2025-03-08] MEDS: LASIX 40 MG IV ×2 (08:53→16:29)
[2025-03-08] MEDS: ZESTRIL 20 MG PO (08:53)
[2025-03-08] MEDS: FARXIGA 10 MG PO (08:53)
[2025-03-08] MEDS: BRILINTA 90 MG PO ×2 (08:53→20:56)
[2025-03-08] MEDS: HYDROPHOR 1 APPLIC TOPICAL (08:54)
--- NOTE | 2025-03-08 08:55 | W.PN.UPDATE ---
Update Note
Progress Note Update
d/w pt on phone this am. Pt is waiting on foot surgery and doing abx per ID. Once again I explained can get worse and require for extensive surgery and further amp. Pt understands fully. Pt also understands to look for soi and fu in my office in 1
week. Pt has number.
pt also knows can get worse even if on abx
fu once dc
will sign off
--- NOTE | 2025-03-08 10:07 | CM ---
priced irina with pts PP plan [facility]. his co pay is ZERO dollars.
--- NOTE | 2025-03-08 12:34 | PTCARENOTE ---
Pt is AOx3, no complaints of pain or discomfort. Independent OOB. Blood sugars monitored. SR on tele monitor, VSS. Right groin site changed. Wound care completed. Call jones within reach.
[2025-03-08 12:50] LABS: Glucose - Point of Care 153 mg/dl (70-99)
[2025-03-08] MEDS: NOVOLOG FLEXPEN-LOW RESISTANCE 1 UNITS SC (12:57)
--- NOTE | 2025-03-08 13:32 | W.PN.ID1 ---
Date of Service
Date of Service: March 08, 2025
Today's Communication
Continue with cefazolin. Discontinue further vancomycin.
Assessment / Plan
Right hallux osteomyelitis
Right hallux SSTI
Chronic right foot diabetic foot ulcer
Acute CHF exacerbation
CAD; s/p cardiac catheterization
DM�uncontrolled; HbA1c = 9.9
HTN.
Recommendations:
Patient declining amputation of the right hallux at this time, reporting that he needs to straighten out some social issues before it can happen.
Will proceed with IV antibiotics. Patient understands that there is a chance that infection could get worse (as noted by his discussions with Podiatry).
Continue with cefazolin.
Discontinue further vancomycin.
Will place home infusion sheet on paper chart.
Place PICC line.
Patient understands that amputation would likely be best, and given the timeframe of the infection, cure cannot be guaranteed with medical therapy alone.
Patient has been informed that he would likely need 6-week course of antibiotics.
Will proceed with a 6-week course at this time, as date of potential amputation has not been defined as of yet.
����������������������������������������������������������
Chief Complaint
-: Other (Right hallux infection)
Subjective / Review of Systems
Patient seen and examined. Reports feeling improved from yesterday.
Review of Systems: No Fever and No Chills
Vital Signs / Physical Exam
Vital Signs
Vital Signs
Temp Pulse Resp BP Pulse Ox
98.2 F 74 18 119/68 98
03/08/25 11:35 03/08/25 12:00 03/08/25 11:35 03/08/25 11:30 03/08/25 11:35
Physical Exam
Constitutional: No Acute Distress, Comfortable and Non-toxic
Eyes: Sclera Anicteric
Cardiovascular: S1/S2; Negative S3/S4
Pulmonary: Non Labored
Gastrointestinal: Soft and Non Tender
Extremities: Edema
Wound: Other (Right hallux swollen, erythematous. Plantar wound noted.)
Neurological: Awake and Alert
Psychological: Calm
Objective Data
Lab Data
Lab Results
03/08/25 03:55
03/08/25 03:55
ESR 11 mm/hour (0-20) 03/04/25 17:22
Estimated Creat Clear > 125 ml/min 03/08/25 03:55
Total Bilirubin 1.3 mg/dl (0.2-1.3) 03/07/25 02:59
AST 18 U/L (17-59) 03/07/25 02:59
ALT 14 U/L (0-50) 03/07/25 02:59
Alkaline Phosphatase 104 U/L (38-126) 03/07/25 02:59
C-Reactive Protein 12.10 mg/L (0.0-10.00) H 03/04/25 17:22
Most recent labs reviewed.
Micro Results:
03/05/25 10:39 Blood Culture - Preliminary
Blood/Venous No Growth in 72 hours- Final report to follow
03/05/25 11:39 Wound Culture - Preliminary
Toe S aureus-Methicillin Sensitive
Gram negative bacilli
Streptococcus agalactiae
Group C Streptococcus
Gram Stain - Preliminary
03/05/25 09:33 Blood Culture - Preliminary
Blood/Venous No Growth in 72 hours- Final report to follow
03/04/25 23:56 MRSA Screen - Final
Nose Staph aureus MRSA
Imaging:
03/05/2025 MRI right lower extremity: Soft tissue swelling/edema of the great toe, with a soft tissue defect along the medial plantar aspect. Under the soft tissue defect there is a small focus of confluent low T1 and T2/STIR hyperintense signal
favored to represent early acute osteomyelitis. Please see full dictation for additional detail.
--- NOTE | 2025-03-08 14:10 | W.PN.HOSP.TC ---
Today's Communication/Plan
-
PICC line
Home Abx as per CM
Assessment / Plan
Assessment / Plan
44yo M with PMHx of DM, HTN, CHF came to the hospital with ongoing SOB. He lost follow up with PCP 1 year ago and ran out of his meds appr 6 month before this admission. Could not follow up with his chronic health problems due to family reasons and
finally found availability in his work and family schedule to come to ED. Found in mild CHF. Also had R great toe wound for 2-3 months, with foul smelling discharge, concerning for diabetic wound with OM. Cath done on 03/07/25, one stent placed.
Echo: EF 15% with global hypokinesis - discussed with cardiology, no direct indication for LifeVest with absent VT or no Hx of cardiac arest. Patient does not feel ready for surgical mgmt of toe infection, in spite it goes against medical advise
from podiatry
A/P:
#Acute HFrEF exacerbation
#Troponin elevation, most likely 2/2 CHF
#Sinus tachycardia
#Essential HTN
Lasix, daily weight, I&O, follow Cr, electrolytes
Low salt diet
Echo: EF 15% with global hypokinesis
Cardiology consult: cath on 03/07/25, one stent placed
ASA, statin, BB, spironolactone,
TSH WNL
LDL 112
troponin flat 0.079-0.088-0.083
EKG without overt ST elevation
#R great toe diabetic wound with acute OM
Bcx NTD
woundCx: MSSA, bacteroides, Strep.aglactae, Group C strep
Ancef as per ID
MRSA screen pos
Podiatry consult: recommended for surgical mg, but patient is willing to delay, in spite of that surgical treatment is the only definite option and delaying that could cause worsening of infection and subsequently - higher level of amputation. He
still wants to be d/c on Abx (however he realizes that it might not be helpful) until he will rectify his family issues and then will proceed with surgery. He was advised not to delay.
MRI proved initial stage of OM
US LE arterial without PAD
#DM type 2 with unknown complications
Accuchecks, insulin SS, DM diet
HgbA1c 9.9% - will start on metformin and Farxiga
DM SUPERVISOR CIGAR MAKING MACHINE consult
#Epistaxis
minimal
most probably 2/2 blowing the nose
monitor
#Indirect bilirubinemia - improved
#Elevated Alk.phos - resolved
LDH mildly elevated as well as mild retics elevation and total bili 1.4 - most likely reaction to acute disease
DVT ppx lovenox
Full code
I have spent at least 35min reviewing chart, test results, communication with consultants and providing direct patient care
Anticipated Discharge: 24 - 48 hours
Subjective/Interval History
-
Date of Service: March 08, 2025
Objective Data
-
Labs:
Laboratory Results
03/08/25
03:55
WBC 9.8
Hgb 14.7
Hct 43.8
Plt Count 224
Sodium 137
Potassium 3.8
Chloride 101
Carbon Dioxide 22
BUN 18
Creatinine 0.9
Glucose 107 H
Calcium 9.8
Vital Signs:
Vital Signs
Temp Pulse Resp BP Pulse Ox
98.2 F 74 18 119/68 98
03/08/25 11:35 03/08/25 12:00 03/08/25 11:35 03/08/25 11:30 03/08/25 11:35
I&O
03/07/25 03/08/25 03/09/25
06:59 06:59 06:59
Intake Total 240 / 240 1020 / 1020 480 / 480
Output Total 6475 / 6475 5550 / 5550 400 / 400
Balance -6235 / -1053 -2650 / -4171 80 / 80
Physical Exam
-
General: No Apparent Distress
HEENT: Normocephalic
Respiratory: Clear to Auscultation
GI: Soft, Nontender and Nondistended
Genito-urinary: No Costovertebral Tender
Musculoskeletal: No Clubbing, No Cyanosis and No Edema
Neuro: Awake, Alert, Oriented and AO x 3
[2025-03-08 17:16] LABS: Glucose - Point of Care 134 mg/dl (70-99)
[2025-03-08] MEDS: CRESTOR 20 MG PO (18:21)
[2025-03-08] MEDS: LOVENOX 40 MG SC (18:21)
--- NOTE | 2025-03-08 20:37 | VATNOTE ---
Picc retracted 8cm per radioligist report. redressed per protocol. blood return both lumens. burke CASEY updated picc ready to use.
[2025-03-08 22:10] LABS: Glucose - Point of Care 121 mg/dl (70-99)
[2025-03-09] VITALS (8 sets, daily range): BP systolic 120–158; BP diastolic 76–103; BMI 35.4
[2025-03-09] MEDS: ANCEF 10 IV ×3 (01:00→16:19)
[2025-03-09] MEDS: FLUSH (NSS) 2 FLUSH IV (01:00)
[2025-03-09 07:00] LABS: Glucose - Point of Care 110 mg/dl (70-99)
--- NOTE | 2025-03-09 07:39 | W.PN.CARDCBS ---
Addendum entered and electronically signed by Moe Weeks MD 03/09/25 08:23:
Patient seen and examined
Agree with PA-C note and assessment
Agree with PA-C plan
No active chest pain
Feels better
Exam:
Alert and x 3
Nonfocal neurologically
JVP 6
No respiratory distress
Cor regular no murmur rubs or gallops
Lungs clear to auscultation bilaterally no wheeze rales rhonchi
Abdomen soft nontender positive bowel sounds
no extremity edema
Assessment:
Presented with VELASQUEZ
Hypertensive urgency
Acute HFrEF
Elevated troponin
Combined ischemic/nonischemic cardiomyopathy
Sinus tachycardia
R diabetic foot wound with osteomyelitis
Uncontrolled DM2 with diabetic neuropathy
HLD
Obesity
ECHO 2021: EF 55%, mild concentric LVH, trace MR, mildly dilated LA, normal right heart
ECHO 03/05/2025: EF 27%, global hypokinesis, mod enlarged LA, mildly enlarged RA, no significant valvular disease, trace pericardial effusion
L&RHC 03/07/2025: LM: Short and unobstructed. LAD: Diffuse noncritical luminal irregularities over its course. Circ: OM2 has a 95% as it arises from circumflex and 60% stenosis in midportion of the vessel. RCA: Minor luminal irregularities. LVEDP 34
mmHg. Angioplasty: High grade proximal and mid OM2 stenosis which was successfully stented with a 2.5 x 34 mm Mariusz DEVEN.
Plan:
-Presented with VELASQUEZ and LE edema. Ran out of all medications, previously was taking amlodipine, HCTZ, Jardiance, lisinopril, metformin, rosuvastatin, and baby aspirin.
- Appears euvolemic. Will transition to PO lasix 40mg BID at discharge.
-Creat stable at 0.8 on 03/08. BMP ordered 03/09 by me to reassess. Continue to follow daily weights, I&Os,
-CHF education.
-Echo 03/05 showed EF down to 27%, new compared to prior echo in 2021.
-Continue medical therapy with Coreg, lisinopril, spironolactone, and farxiga.
-Underwent L & RHC 03/07 which revealed high grade proximal OM2 and mid OM2 stenosis which was successfully stented as above.
-Continue DAPT with aspirin, Brilinta.
-Cardiac rehab c/s
-LDL 112. Continue Crestor 20mg daily.
-He also has R diabetic foot wound w/ osteomyelitis of R hallux. Had discussed amputation, but he states he needs more time to prepare for this. Continue abx per ID.
-Cardiology follow up has been arranged. I have no objection to discharge
Original Note:
Today's Communication / Plan
-
Transition to PO lasix
Check BMP to assess creat/potassium
Continue amlodipine, coreg, spironolactone, lisinopril, and farxiga
Continue DAPT with aspirin, Brilinta
Abx per ID
Impression / Plan
-
Primary Oil Driller: none, initially seen by Dr. Castro
Assessment:
Presented with VELASQUEZ
Hypertensive urgency
Acute HFrEF
Elevated troponin
Combined ischemic/nonischemic cardiomyopathy
Sinus tachycardia
R diabetic foot wound with osteomyelitis
Uncontrolled DM2 with diabetic neuropathy
HLD
Obesity
ECHO 2021: EF 55%, mild concentric LVH, trace MR, mildly dilated LA, normal right heart
ECHO 03/05/2025: EF 27%, global hypokinesis, mod enlarged LA, mildly enlarged RA, no significant valvular disease, trace pericardial effusion
L&RHC 03/07/2025: LM: Short and unobstructed. LAD: Diffuse noncritical luminal irregularities over its course. Circ: OM2 has a 95% as it arises from circumflex and 60% stenosis in midportion of the vessel. RCA: Minor luminal irregularities. LVEDP 34
mmHg. Angioplasty: High grade proximal and mid OM2 stenosis which was successfully stented with a 2.5 x 34 mm Mariusz DEVEN.
Plan:
-Presented with VELASQUEZ and LE edema. Ran out of all medications, previously was taking amlodipine, HCTZ, Jardiance, lisinopril, metformin, rosuvastatin, and baby aspirin.
-Diuresing with IV lasix 40mg BID. Weight down another 2 lbs overnight if accurate, down to 268 lbs 03/09.
-Feeling well. No SOB w/ ambulation. Appears euvolemic. Will transition to PO lasix 40mg BID.
-Creat stable at 0.8 on 03/08. BMP ordered 03/09 by me to reassess. Continue to follow daily weights, I&Os,
-CHF education.
-Echo 03/05 showed EF down to 27%, new compared to prior echo in 2021.
-Continue medical therapy with Coreg, lisinopril, spironolactone, and farxiga.
-Underwent L & RHC 03/07 which revealed high grade proximal OM2 and mid OM2 stenosis which was successfully stented as above.
-Continue DAPT with aspirin, Brilinta.
-Cardiac rehab c/s
-LDL 112. Continue Crestor 20mg daily.
-He also has R diabetic foot wound w/ osteomyelitis of R hallux. Had discussed amputation, but he states he needs more time to prepare for this. Continue abx per ID.
-Cardiology follow up has been arranged.
HPI: Patient is a 44 yo M with PMH of HTN, HLD, DM2 who states his PCP retired 11/2023 and has not seen provider since that time. He ran out of his medications, which include amlodipine, HCTZ, Jardiance, lisinopril, metformin, rosuvastatin, and baby
aspirin, approximately 6 months ago. He reports noting SOB and LE edema, worsening over the last 2 months, particularly worse several days prior to admission. Reports heart pounding, LE edema, weight gain, abd bloating, and orthopnea. No CP. BPs
elevated on arrival at 181/125. ProBNP 4280 and CXR with mild edema. Cardiology consulted for assistance with mgmt. He also reports a wound on his R foot which he initially felt was healing however opened back up. No fevers/chills.
Progress Note - Oil Driller
Subjective
Date of Service: March 09, 2025
Feeling well. No SOB. edema improved
Objective
Labs:
03/08/25 03:55
03/08/25 03:55
Labs
Hgb 14.7 g/dL (13.0-18.0) 03/08/25 03:55
Hct 43.8 % (39.0-52.0) 03/08/25 03:55
Plt Count 224 10^3/uL (130-400) 03/08/25 03:55
Sodium 137 mmol/L (135-145) 03/08/25 03:55
Potassium 3.8 mmol/L (3.5-5.1) 03/08/25 03:55
BUN 18 mg/dl (9-20) 03/08/25 03:55
Creatinine 0.9 mg/dL (0.7-1.3) 03/08/25 03:55
Glucose 107 mg/dl (70-99) H 03/08/25 03:55
Vital Signs and I&O:
Vital Signs
Temp Pulse Resp BP Pulse Ox
97.8 F 82 18 156/97 97
03/09/25 06:55 03/09/25 02:35 03/09/25 06:55 03/09/25 02:35 03/09/25 06:55
Vital Signs
Temp Pulse Resp BP Pulse Ox
97.8 F 82 18 156/97 97
03/09/25 06:55 03/09/25 02:35 03/09/25 06:55 03/09/25 02:35 03/09/25 06:55
Intake & Output
03/07/25 03/08/25 03/09/25 03/10/25
06:59 06:59 06:59 06:59
Intake Total 240 / 240 1020 / 1020 1440 / 1440
Output Total 6475 / 6475 5550 / 5550 3500 / 3500
Balance -6235 / -6235 -0 / -4530 -2059 / -2059
Physical Exam
Physical Exam
GEN: No distress, awake, alert, oriented x3
HEENT: supple, anicteric, mmm, EOMI
LUNGS: CTA bilaterally, no wheezes/rales
CV: Reg, S1/S2, no murmur
EXT: No cyanosis, clubbing. trace edema of b/l LE
NEURO: Gross non-focal
SKIN: Warm, pink, dry. No rash
[2025-03-09] MEDS: NORVASC 5 MG PO ×2 (08:32→21:07)
[2025-03-09] MEDS: BRILINTA 90 MG PO ×2 (08:32→21:07)
[2025-03-09] MEDS: ZESTRIL 20 MG PO (08:32)
[2025-03-09] MEDS: ASPIR LOW (ENTERIC COATED) 81 MG PO (08:32)
[2025-03-09] MEDS: COREG 12.5 MG PO ×2 (08:32→21:07)
[2025-03-09] MEDS: NOVOLOG FLEXPEN-LOW RESISTANCE SC ×3 (08:32→17:21)
[2025-03-09] MEDS: FARXIGA 10 MG PO (08:32)
[2025-03-09] MEDS: ALDACTONE 12.5 MG PO (08:33)
[2025-03-09] MEDS: HYDROPHOR 1 APPLIC TOPICAL (08:33)
[2025-03-09] MEDS: LASIX 40 MG PO ×2 (08:38→16:18)
--- NOTE | 2025-03-09 11:11 | W.PN.HOSP.TC ---
Today's Communication/Plan
-
pending home infusion arrangement
Assessment / Plan
Assessment / Plan
44yo M with PMHx of DM, HTN, CHF came to the hospital with ongoing SOB. He lost follow up with PCP 1 year ago and ran out of his meds appr 6 month before this admission. Could not follow up with his chronic health problems due to family reasons and
finally found availability in his work and family schedule to come to ED. Found in mild CHF. Also had R great toe wound for 2-3 months, with foul smelling discharge, concerning for diabetic wound with OM. Cath done on 03/07/25, one stent placed.
Echo: EF 15% with global hypokinesis - discussed with cardiology, no direct indication for LifeVest with absent VT or no Hx of cardiac arest. Patient does not feel ready for surgical mgmt of toe infection, in spite it goes against medical advise
from podiatry. CM arranging home infusions - apparently not earlier then 03/11/25
A/P:
#Acute HFrEF exacerbation
#Troponin elevation, most likely 2/2 CHF
#Sinus tachycardia
#Essential HTN
Lasix, daily weight, I&O, follow Cr, electrolytes
Low salt diet
Echo: EF 15% with global hypokinesis
Cardiology consult: cath on 03/07/25, one stent placed
ASA, statin, BB, spironolactone,
TSH WNL
LDL 112
troponin flat 0.079-0.088-0.[address] elevation
#R great toe diabetic wound with acute OM
Bcx NTD
woundCx: MSSA, bacteroides, Strep.aglactae, Group C strep
Ancef as per ID
MRSA screen pos
Podiatry consult: recommended for surgical mg, but patient is willing to delay, in spite of that surgical treatment is the only definite option and delaying that could cause worsening of infection and subsequently - higher level of amputation. He
still wants to be d/c on Abx (however he realizes that it might not be helpful) until he will rectify his family issues and then will proceed with surgery. He was advised not to delay.
MRI proved initial stage of OM
US LE arterial without PAD
#DM type 2 with unknown complications
Accuchecks, insulin SS, DM diet
HgbA1c 9.9% - will start on metformin and Farxiga
DM GRADUATE ADVISOR consult
#Epistaxis
minimal
most probably 2/2 blowing the nose
monitor
#Indirect bilirubinemia - improved
#Elevated Alk.phos - resolved
LDH mildly elevated as well as mild retics elevation and total bili 1.4 - most likely reaction to acute disease
DVT ppx lovenox
Full code
I have spent at least 35min reviewing chart, test results, communication with consultants and providing direct patient care
Anticipated Discharge: 24 - 48 hours
Subjective/Interval History
-
Date of Service: March 09, 2025
Objective Data
-
Labs:
Laboratory Results
03/09/25
07:39
Sodium Pending
Potassium Pending
Chloride Pending
Carbon Dioxide Pending
BUN Pending
Creatinine Pending
Glucose Pending
Calcium Pending
Vital Signs:
Vital Signs
Temp Pulse Resp BP Pulse Ox
97.8 F 76 18 150/91 97
03/09/25 06:55 03/09/25 08:32 03/09/25 06:55 03/09/25 08:32 03/09/25 06:56
I&O
03/08/25 03/09/25 03/10/25
06:59 06:59 06:59
Intake Total 1020 / 1020 1440 / 1440
Output Total 5550 / 5550 3500 / 3500 275 / 275
Balance -4530 / -4530 -0 / -2060 -275 / -275
Review of Systems
-
History Source: Patient
All other systems: Reviewed and negative
Physical Exam
-
General: No Apparent Distress
HEENT: Normocephalic
Respiratory: Clear to Auscultation
Neuro: Awake, Alert, Oriented and AO x 3
Psych: Calm
[2025-03-09 12:17] LABS: Glucose - Point of Care 141 mg/dl (70-99)
--- NOTE | 2025-03-09 13:01 | PTCARENOTE ---
VAT made aware of sluggish PICC lumens. +blood return from both lumens, difficult to flush. 4 iranian lumen used for PICC insertion, narrow lumen makes flushing difficult. OK to use per VAT.
[2025-03-09 15:50] LABS: Blood Urea Nitrogen 20 mg/dl (9-20); Calcium 9.4 mg/dl (8.4-10.2); Carbon Dioxide 25 mmol/L (22-30); Chloride 100 mmol/L (98-107); Estimated Creatinine Clearance > 125 ml/min; Glucose 165 mg/dl (70-99); Potassium 3.6 mmol/L (3.5-5.1); Sodium 135 mmol/L (135-145); eGFR > 60.00
[2025-03-09] MEDS: CRESTOR 20 MG PO (16:18)
[2025-03-09] MEDS: LOVENOX 40 MG SC (16:18)
[2025-03-09 17:16] LABS: Glucose - Point of Care 128 mg/dl (70-99)
--- NOTE | 2025-03-09 19:45 | PTCARENOTE ---
Assumed care of pt from prev nsg shift; Pt AAOx3 w/no c/o CP or SOB. Pt w/VSS w/HR in the 70's & BP 138/87 this evening. Pt is SR on telemetry monitoring. Pt w/RUE dual lumen PICC; Both lumens of the PICC flush tightly w/good blood return, but VAT
in to see pt earlier & confirmed that due to the size of PICC it will flush like this. Pt w/ R radial & R groin sites intact. R radial is open to air w/small area of purple ecchymosis, but no signs or symptoms bleeding or hematoma. R groin
w/dressing intact, also w/no signs or symptoms of bleeding or hematoma. Pt w/R foot LLE dressing changed by [facility] nsg shift-C/D/I. PCT completed CHG cloth bath on pt. Pt w/call jones within reach & plan of care ongoing.
[2025-03-09 21:52] LABS: Glucose - Point of Care 153 mg/dl (70-99)
[2025-03-10] VITALS (8 sets, daily range): BP systolic 123–149; BP diastolic 83–95; BMI 35.0
[2025-03-10] MEDS: FLUSH (NSS) 2 FLUSH IV (00:10)
[2025-03-10] MEDS: ANCEF 10 IV ×3 (00:10→16:53)
[2025-03-10 08:02] LABS: Glucose - Point of Care 132 mg/dl (70-99)
--- NOTE | 2025-03-10 08:10 | W.PN.HOSP.TC ---
Today's Communication/Plan
-
Appropriate weight loss on oral lasix
COnt Abx, however Wound Cx still did not identify GNB
Labs in AM
Assessment / Plan
Assessment / Plan
44yo M with PMHx of DM, HTN, CHF came to the hospital with ongoing SOB. He lost follow up with PCP 1 year ago and ran out of his meds appr 6 month before this admission. Could not follow up with his chronic health problems due to family reasons and
finally found availability in his work and family schedule to come to ED. Found in mild CHF. Also had R great toe wound for 2-3 months, with foul smelling discharge, concerning for diabetic wound with OM. Cath done on 03/07/25, one stent placed.
Echo: EF 15% with global hypokinesis - discussed with cardiology, no direct indication for LifeVest with absent VT or no Hx of cardiac arest. Patient does not feel ready for surgical mgmt of toe infection, in spite it goes against medical advise
from podiatry. CM arranging home infusions - apparently not earlier then 03/11/25
A/P:
#Acute HFrEF exacerbation
#Troponin elevation, most likely 2/2 CHF
#Sinus tachycardia
#Essential HTN
Lasix, daily weight, I&O, follow Cr, electrolytes
Low salt diet
Echo: EF 15% with global hypokinesis
Cardiology consult: cath on 03/07/25, one stent placed
ASA, statin, BB, spironolactone,
TSH WNL
LDL 112
troponin flat 0.079-0.088-0.[address] elevation
#R great toe diabetic wound with acute OM
Bcx NTD
woundCx: MSSA, bacteroides, Strep.aglactae, Group C strep and GNB still to be identified
Ancef as per ID
MRSA screen pos
Podiatry consult: recommended for surgical mg, but patient is willing to delay, in spite of that surgical treatment is the only definite option and delaying that could cause worsening of infection and subsequently - higher level of amputation. He
still wants to be d/c on Abx (however he realizes that it might not be helpful) until he will rectify his family issues and then will proceed with surgery. He was advised not to delay.
MRI proved initial stage of OM
US LE arterial without PAD
#DM type 2 with unknown complications
Accuchecks, insulin SS, DM diet
HgbA1c 9.9% - will start on metformin and Farxiga
DM ROLLED GOLD PLATER consult
#Epistaxis
minimal
most probably 2/2 blowing the nose
monitor
#Indirect bilirubinemia - improved
#Elevated Alk.phos - resolved
LDH mildly elevated as well as mild retics elevation and total bili 1.4 - most likely reaction to acute disease
DVT ppx lovenox
Full code
I have spent at least 35min reviewing chart, test results, communication with consultants and providing direct patient care
Anticipated Discharge: 24 - 48 hours
Subjective/Interval History
-
Date of Service: March 10, 2025
Objective Data
-
Vital Signs:
Vital Signs
Temp Pulse Resp BP Pulse Ox
97.4 F 76 16 149/95 98
03/10/25 07:35 03/10/25 07:20 03/10/25 07:35 03/10/25 07:20 03/10/25 07:35
I&O
03/09/25 03/10/25 03/11/25
06:59 06:59 06:59
Intake Total 1440 / 1440 1680 / 1680
Output Total 3500 / 3500 650 / 650
Balance -2059 / -2059 1030 / 1030
Review of Systems
-
History Source: Patient
All other systems: Reviewed and negative
Physical Exam
-
General: No Apparent Distress
HEENT: Normocephalic
Respiratory: Clear to Auscultation
GI: Soft, Nontender and Nondistended
Neuro: Awake, Alert, Oriented and AO x 3
Psych: Calm
--- NOTE | 2025-03-10 08:41 | W.PN.CARDCBS ---
Today's Communication / Plan
-
Continue cardiac medicines
Approaching discharge
We will sign off call with further questions
Impression / Plan
-
Primary Commodity Broker: none, initially seen by Dr. Castro
Assessment:
Presented with VELASQUEZ
Hypertensive urgency
Acute HFrEF
Elevated troponin
Combined ischemic/nonischemic cardiomyopathy
Sinus tachycardia
R diabetic foot wound with osteomyelitis
Uncontrolled DM2 with diabetic neuropathy
HLD
Obesity
ECHO 2021: EF 55%, mild concentric LVH, trace MR, mildly dilated LA, normal right heart
ECHO 03/05/2025: EF 27%, global hypokinesis, mod enlarged LA, mildly enlarged RA, no significant valvular disease, trace pericardial effusion
L&RHC 03/07/2025: LM: Short and unobstructed. LAD: Diffuse noncritical luminal irregularities over its course. Circ: OM2 has a 95% as it arises from circumflex and 60% stenosis in midportion of the vessel. RCA: Minor luminal irregularities. LVEDP 34
mmHg. Angioplasty: High grade proximal and mid OM2 stenosis which was successfully stented with a 2.5 x 34 mm Louise DEVEN.
Plan:
-Presented with VELASQUEZ and LE edema. Ran out of all medications, previously was taking amlodipine, HCTZ, Jardiance, lisinopril, metformin, rosuvastatin, and baby aspirin.
- Doing well on p.o. Lasix
-Creat stable
-CHF education.
-Echo 03/05 showed EF down to 27%, new compared to prior echo in 2021.
-Continue medical therapy with Coreg, lisinopril, spironolactone, and farxiga.
-Underwent L & RHC 03/07 which revealed high grade proximal OM2 and mid OM2 stenosis which was successfully stented as above.
-Continue DAPT with aspirin, Brilinta.
-Cardiac rehab c/s
-LDL 112. Continue Crestor 20mg daily.
-He also has R diabetic foot wound w/ osteomyelitis of R hallux. Had discussed amputation, but he states he needs more time to prepare for this. Continue abx per ID.
-Cardiology follow up has been arranged. We will sign off please contact with further questions
HPI: Patient is a 44 yo M with PMH of HTN, HLD, DM2 who states his PCP retired 11/2023 and has not seen provider since that time. He ran out of his medications, which include amlodipine, HCTZ, Jardiance, lisinopril, metformin, rosuvastatin, and baby
aspirin, approximately 6 months ago. He reports noting SOB and LE edema, worsening over the last 2 months, particularly worse several days prior to admission. Reports heart pounding, LE edema, weight gain, abd bloating, and orthopnea. No CP. BPs
elevated on arrival at 181/125. ProBNP 4280 and CXR with mild edema. Cardiology consulted for assistance with mgmt. He also reports a wound on his R foot which he initially felt was healing however opened back up. No fevers/chills.
Progress Note - Commodity Broker
Subjective
Date of Service: March 10, 2025
Feels well no chest pain
Objective
Labs:
03/08/25 03:55
03/09/25 15:27
Labs
Hgb 14.7 g/dL (13.0-18.0) 03/08/25 03:55
Hct 43.8 % (39.0-52.0) 03/08/25 03:55
Plt Count 224 10^3/uL (130-400) 03/08/25 03:55
Sodium 135 mmol/L (135-145) 03/09/25 15:27
Potassium 3.6 mmol/L (3.5-5.1) 03/09/25 15:27
BUN 20 mg/dl (9-20) 03/09/25 15:27
Creatinine 0.8 mg/dL (0.7-1.3) 03/09/25 15:27
Glucose 165 mg/dl (70-99) H 03/09/25 15:27
Vital Signs and I&O:
Vital Signs
Temp Pulse Resp BP Pulse Ox
97.4 F 76 16 149/95 98
03/10/25 07:35 03/10/25 07:20 03/10/25 07:35 03/10/25 07:20 03/10/25 07:35
Vital Signs
Temp Pulse Resp BP Pulse Ox
97.4 F 76 16 149/95 98
03/10/25 07:35 03/10/25 07:20 03/10/25 07:35 03/10/25 07:20 03/10/25 07:35
Intake & Output
03/08/25 03/09/25 03/10/25 03/11/25
06:59 06:59 06:59 06:59
Intake Total 1020 / 1020 1440 / 1440 1680 / 1680
Output Total 5550 / 5550 3500 / 3500 650 / 650
Balance -4530 / -4530 -2060 / -2060 1030 / 1030
Physical Exam
Physical Exam
����Physical Exam
���������������������General:��no apparent distress, not acutely ill
���������������������������Neck:��supple. no meningeal signs. normal psoterior pharynx
������������������������
���������������������������Heart:��s1/s2 regular rate and rhythm, no murmur. equal radial pulses.
��������������������������Lungs: ��no acute respiratory distress. clear bilaterally
����������������������Abdomen:�normal bowel sounds. not tender. no CVAT
��������������������������Neuro:��alert and oriented. no focal neurological deficits
������������������������������Skin: ��no rash
�����������������������Psychiatric:�well kept. interactive and cooperative
�����������������������Extremities:��no edema. no calf tenderness. negative homans. good distal pulses
��
�
[2025-03-10] MEDS: NOVOLOG FLEXPEN-LOW RESISTANCE SC ×3 (09:05→17:33)
[2025-03-10] MEDS: ALDACTONE 12.5 MG PO (09:06)
[2025-03-10] MEDS: NORVASC 5 MG PO ×2 (09:06→21:02)
[2025-03-10] MEDS: LASIX 40 MG PO ×2 (09:06→16:53)
[2025-03-10] MEDS: BRILINTA 90 MG PO ×2 (09:06→21:02)
[2025-03-10] MEDS: FARXIGA 10 MG PO (09:06)
[2025-03-10] MEDS: COREG 12.5 MG PO ×2 (09:06→21:01)
[2025-03-10] MEDS: ASPIR LOW (ENTERIC COATED) 81 MG PO (09:06)
[2025-03-10] MEDS: HYDROPHOR 1 APPLIC TOPICAL (09:06)
[2025-03-10] MEDS: ZESTRIL 20 MG PO (09:07)
--- NOTE | 2025-03-10 10:32 | W.PN.ID1 ---
Date of Service
Date of Service: March 10, 2025
Today's Communication
Continue with antibiotics. See below�
Assessment / Plan
Right hallux osteomyelitis
Right hallux SSTI
Chronic right foot diabetic foot ulcer
Acute CHF exacerbation
CAD; s/p cardiac catheterization
DM�uncontrolled; HbA1c = 9.9
HTN.
Recommendations:
Patient declining amputation of the right hallux at this time, reporting that he needs to 'straighten out some social issues' before it can happen.
Will proceed with IV antibiotics. Patient understands that there is a chance that infection could get worse (as noted by his discussions with Podiatry).
Finalized wound culture reviewed. Wound culture was a superficial swab and not a deep culture and thus likely reflects colonization. Based upon the appearance of the toe, the most likely etiology of the osteomyelitis is the recovered MSSA. The
recovery of Alcaligenes faecalis likely reflects superficial wound colonizer.
Continue with cefazolin. Will follow-up with patient in the outpatient setting to assure that amputation takes place.
Will place home infusion sheet on paper chart.
Place PICC line.
Patient understands that amputation would likely be best, and given the timeframe of the infection, cure cannot be guaranteed with medical therapy alone.
Patient has been informed that he would likely need 6-week course of antibiotics; although the hope is that amputation occurs before this time.
Will proceed with a 6-week course at this time, as date of potential amputation has not been defined as of yet.
����������������������������������������������������������
Chief Complaint
-: Other (Right hallux infection)
Subjective / Review of Systems
Review of Systems: No Fever, No Chills and No Abdominal Pain
Vital Signs / Physical Exam
Vital Signs
Vital Signs
Temp Pulse Resp BP Pulse Ox
97.4 F 76 16 131/90 98
03/10/25 07:35 03/10/25 07:20 03/10/25 07:35 03/10/25 09:06 03/10/25 07:35
Physical Exam
Constitutional: No Acute Distress, Comfortable and Non-toxic
Eyes: Sclera Anicteric
Cardiovascular: S1/S2; Negative S3/S4
Pulmonary: Non Labored
Gastrointestinal: Soft and Non Tender
Extremities: Edema
Wound: Other (Right hallux swollen, erythematous. Plantar wound noted.)
Neurological: Awake and Alert
Psychological: Calm
Objective Data
Lab Data
Lab Results
03/08/25 03:55
03/09/25 15:27
ESR 11 mm/hour (0-20) 03/04/25 17:22
Estimated Creat Clear > 125 ml/min 03/09/25 15:27
Total Bilirubin 1.3 mg/dl (0.2-1.3) 03/07/25 02:59
AST 18 U/L (17-59) 03/07/25 02:59
ALT 14 U/L (0-50) 03/07/25 02:59
Alkaline Phosphatase 104 U/L (38-126) 03/07/25 02:59
C-Reactive Protein 12.10 mg/L (0.0-10.00) H 03/04/25 17:22
Most recent labs reviewed.
Micro Results:
03/05/25 09:33 Blood Culture - Final
Blood/Venous No Growth - Final Report
03/05/25 11:39 Wound Culture - Final
Toe S aureus-Methicillin Sensitive
Alcaligenes Faecalis
Streptococcus agalactiae
Group C Streptococcus
Gram Stain - Final
03/05/25 10:39 Blood Culture - Preliminary
Blood/Venous No Growth in 4 days- Final report to follow
03/04/25 23:56 MRSA Screen - Final
Nose Staph aureus MRSA
Imaging:
03/05/2025 MRI right lower extremity: Soft tissue swelling/edema of the great toe, with a soft tissue defect along the medial plantar aspect. Under the soft tissue defect there is a small focus of confluent low T1 and T2/STIR hyperintense signal
favored to represent early acute osteomyelitis. Please see full dictation for additional detail.
Care Review
Plan reviewed with: Physician (Hospitalist)
[2025-03-10 12:36] LABS: Glucose - Point of Care 146 mg/dl (70-99)
[2025-03-10] MEDS: LOVENOX 40 MG SC (16:53)
[2025-03-10] MEDS: CRESTOR 20 MG PO (16:53)
[2025-03-10 17:25] LABS: Glucose - Point of Care 130 mg/dl (70-99)
--- NOTE | 2025-03-10 20:00 | PTCARENOTE ---
Assumed care of pt from [facility]; Pt AAOx3 w/no c/o CP or SOB. Pt w/VSS w/HR in the 70's & BP 130/89 this evening. Pt is SR on telemetry monitoring. Pt w/RUE dual lumen PICC; Both lumens of the PICC flush tightly but have good blood return. Pt
w/ R radial & R groin sites PREPLEATER w/no signs or symptoms of bleeding or hematoma. Pt w/R foot LLE dressing changed by [facility] shift-C/D/I. PCT completed CHG cloth bath on pt. Pt w/call jones within reach & plan of care ongoing.
[2025-03-10 23:35] LABS: Glucose - Point of Care 115 mg/dl (70-99)
[2025-03-11] MEDS: FLUSH (NSS) 2 FLUSH IV ×3 (01:08→15:05)
[2025-03-11] MEDS: ANCEF 10 IV ×3 (01:08→15:04)
[2025-03-11 04:04] VITALS: BP 113/73
[2025-03-11 04:52] LABS: Blood Urea Nitrogen 16 mg/dl (9-20); Calcium 8.9 mg/dl (8.4-10.2); Carbon Dioxide 24 mmol/L (22-30); Chloride 102 mmol/L (98-107); Estimated Creatinine Clearance > 125 ml/min; Glucose 123 mg/dl (70-99); Magnesium 2.2 mg/dl (1.6-2.3); Phosphorus 3.1 mg/dl (2.5-4.5); Potassium 3.6 mmol/L (3.5-5.1); Sodium 137 mmol/L (135-145); eGFR > 60.00
[2025-03-11 06:00] VITALS: BMI 34.7
[2025-03-11 07:34] VITALS: BP 127/87
[2025-03-11 07:38] LABS: Glucose - Point of Care 111 mg/dl (70-99)
[2025-03-11] MEDS: NOVOLOG FLEXPEN-LOW RESISTANCE SC ×2 (07:41→12:43)
--- NOTE | 2025-03-11 07:53 | W.PN.HOSP.TC ---
Addendum entered and electronically signed by Rosalba Herr MD 03/11/25 14:48:
total DC time 40 min
Original Note:
Today's Communication/Plan
-
DC home today after home Abx infusion set up
Assessment / Plan
Assessment / Plan
44 yo M with PMHx of DM, HTN, CHF came to the hospital with ongoing SOB. He lost follow up with PCP 1 year ago and ran out of his [employer] appr 6 month before this admission. Could not follow up with his chronic health problems due to family reasons and
finally found availability in his work and family schedule to come to ED. Found in mild CHF. Also had R great toe wound for 2-3 months, with foul smelling discharge, concerning for diabetic wound with OM. Cath done on 03/07/25, one stent placed.
Echo: EF 15% with global hypokinesis - discussed with cardiology, no direct indication for LifeVest with absent VT and no Hx of cardiac arrest. Patient does not feel ready for surgical mgmt of toe infection, in spite it goes against medical advise
from podiatry. CM arranging home infusions - apparently not earlier then 03/11/25
A/P:
# Acute HFrEF exacerbation
# Troponin elevation likely 2/2 CHF
# Sinus tachycardia, resolved
# Essential HTN
Lasix now PO 40 mg BID, daily weight, I&O, follow Cr, electrolytes
Low salt diet
Echo: EF 15% with global hypokinesis
Cardiology consulted: L & RHC 03/07 which revealed high grade proximal OM2 and mid OM2 stenosis which was successfully stented
cont ASA/Brilinta, statin Cretor, Coreg, spironolactone, Lisinopril
TSH WNL
LDL [address] elevation
# R great toe diabetic wound with acute OM
Bcx NTD
wound Cx: MSSA, Strep. aglactae, Group C strep and Alcaligenes Faecalis
Ancef for 6 weeks per ID
MRSA screen pos
Podiatry consult: recommended for surgical mg, but patient is willing to delay, in spite of that surgical treatment is the only definite option and delaying that could cause worsening of infection and subsequently - higher level of amputation. He
still wants to be d/c on Abx (however he realizes that it might not be helpful) until he will rectify his family issues and then will proceed with surgery. He was advised not to delay.
MRI proved initial stage of OM
US LE arterial without PAD
# DM type 2 with unknown complications
Accuchecks, insulin SS, DM diet
HgbA1c 9.9% - started on metformin and Farxiga
DM METAL DRAWER consulted
# Epistaxis, minimal, most probably 2/2 blowing the nose
monitor
# Indirect bilirubinemia - improved
# Elevated Alk.phos - resolved
LDH mildly elevated as well as mild retics elevation and total bili 1.4 - most likely reaction to acute disease
DVT ppx lovenox
Full code
Anticipated Discharge: Today
Subjective/Interval History
-
Date of Service: March 11, 2025
Objective Data
-
Labs:
Laboratory Results
03/11/25
04:20
Sodium 137
Potassium 3.6
Chloride 102
Carbon Dioxide 24
BUN 16
Creatinine 0.7
Glucose 123 H
Calcium 8.9
Vital Signs:
Vital Signs
Temp Pulse Resp BP Pulse Ox
36.9 C 75 18 127/87 100
03/11/25 07:40 03/11/25 07:34 03/11/25 07:40 03/11/25 07:34 03/11/25 07:40
I&O
03/10/25 03/11/25 03/12/25
06:59 06:59 06:59
Intake Total 1680 / 1680 960 / 960
Output Total 650 / 650 4000 / 4000
Balance 1030 / 1030 -3040 / -3040
Review of Systems
-
History Source: Patient
All other systems: Reviewed and negative
Physical Exam
-
General: Well Developed, Well Nourished, No Apparent Distress, Comfortable and Conversant
HEENT: Normocephalic and Atraumatic
Respiratory: Clear to Auscultation and Non Labored Respirations; Negative Accessory Resp Muscle Use
GI: Soft, Nontender and Nondistended
Neuro: Awake, Alert, Oriented and AO x 3
Psych: Calm and Intact Judgement/Insight
Data Reviewed
-
Labs: Labs Reviewed by me
--- NOTE | 2025-03-11 08:08 | PTCARENOTE ---
Patient is sitting oob in the chair this morning, feels well and is anxious to go home today. Offers no complaints, states his breathing is so much better and he is shocked with the significant weight loss he has had. Plan for home later with IV
antibiotics.
[2025-03-11] MEDS: COREG 12.5 MG PO (08:28)
[2025-03-11] MEDS: ASPIR LOW (ENTERIC COATED) 81 MG PO (08:28)
[2025-03-11] MEDS: BRILINTA 90 MG PO (08:28)
[2025-03-11] MEDS: ALDACTONE 12.5 MG PO (08:28)
--- NOTE | 2025-03-11 08:28 | PN.DE.MGMTRT ---
Insulin Management
- -
03/11/2025 Diabetes Management Follow up
Patient admitted 03/04 with breathing problem, leg swelling - mild chf. PMH: CHF, T2DM, HTN, Morbid obesity. Prior to admission was taking no medication for diabetes. A1C 9.9% on admission. Cr 0.7, eGFR > 60 today. States his primary doctor
retired so he had no doctor, he ran out of medication ~ 6+ months ago. Primary doctor had prescribed metformin and Jardiance for diabetes. Patient states he has a [employer] glucose monitor and would prefer to stay with that.
Patient is awake alert and oriented, sitting up in chair, offers no complaints, able to discuss diabetes care.
S/P Cardiac Cath with stent 03/07. Farxiga was started on 03/08. Glucose stable and in range, premeal 130 to 146
Will make no changes to current regimen. Cont Farxiga 10mg daily. Will start Metformin 1000 mg BID, 1st dose this AM.
Provided diabetes education booklet and reviewed A1C of 9.9 and average glucose for at least 3 months. He immediately acknowledged he needed to get it down to less than 7%. Reviewed action of both medications and importance of taking them as
prescribed. Reviewed importance of testing glucose in pattern provided, fasting and 2 hours after a meal so that he can have data to take to first office visit with new primary provider.
Patient is very receptive.
Will cont to follow.
Diabetes History
- -
Type of Diabetes: 2
Pre-Admission Diabetes Regimen
03/11/25
04:20
Creatinine 0.7
Lab Results
Hemoglobin A1c 9.9 % (4.0-5.6) H 03/05/25 03:30
Insulin Pump Settings
IP Diabetes Regimen
03/10/25 03/10/25 03/10/25
12:34 17:22 23:34
Glucose
POC Glucose 146 H 130 H 115 H
03/11/25 03/11/25
04:20 07:36
Glucose 123 H
POC Glucose 111 H
Meal type: Dinner
Amount consumed: 100%
Patient Education
[2025-03-11] MEDS: LASIX 40 MG PO (08:29)
[2025-03-11] MEDS: FARXIGA 10 MG PO (08:29)
[2025-03-11] MEDS: NORVASC 5 MG PO (08:30)
[2025-03-11] MEDS: ZESTRIL 20 MG PO (08:30)
[2025-03-11] MEDS: HYDROPHOR 1 APPLIC TOPICAL (08:31)
--- NOTE | 2025-03-11 09:07 | W.PN.ID1 ---
Date of Service
Date of Service: March 11, 2025
Today's Communication
Continue antibiotics.
Assessment / Plan
Right hallux osteomyelitis
Right hallux SSTI
Chronic right foot diabetic foot ulcer
Acute CHF exacerbation
CAD; s/p cardiac catheterization
DM�uncontrolled; HbA1c = 9.9
HTN.
Recommendations:
Patient declining amputation of the right hallux at this time, reporting that he needs to 'straighten out some social issues' before it can happen.
Continue IV antibiotics. Patient understands that there is a chance that infection could get worse (as noted by his prior discussions with Podiatry).
Finalized wound culture reviewed. Wound culture was a superficial swab and not a deep culture and thus reflects superficial colonization. Based upon the appearance of the toe, the most likely etiology of the osteomyelitis is the recovered MSSA.
The recovery of Alcaligenes faecalis likely reflects superficial wound colonizer.
Continue with cefazolin. Will follow-up with patient in the outpatient setting to assure that amputation takes place.
Home infusion sheet placed on paper chart.
Right upper extremity PICC line in place.
Patient understands that amputation would likely be best, and given the timeframe of the infection, cure cannot be guaranteed with medical therapy alone.
Patient has been informed that he would likely need 6-week course of antibiotics; although the hope is that amputation occurs before this time.
Will proceed with a 6-week course at this time, as date of potential amputation has not been defined as of yet.
����������������������������������������������������������
Chief Complaint
-: Other (Right hallux infection/osteomyelitis)
Subjective / Review of Systems
Patient seen and examined. Reports no difficulty with antibiotics.
Review of Systems: No Fever and No Chills
Vital Signs / Physical Exam
Vital Signs
Vital Signs
Temp Pulse Resp BP Pulse Ox
98.4 F 75 18 127/87 100
03/11/25 07:40 03/11/25 07:34 03/11/25 07:40 03/11/25 07:34 03/11/25 07:40
Physical Exam
Constitutional: No Acute Distress, Comfortable and Non-toxic
Eyes: Sclera Anicteric
Cardiovascular: S1/S2; Negative S3/S4
Pulmonary: Non Labored
Gastrointestinal: Soft and Non Tender
Extremities: Edema
Wound: Other (Right hallux swollen, erythematous. Plantar toe wound.)
Neurological: Awake and Alert
Psychological: Calm
Objective Data
Lab Data
Lab Results
03/08/25 03:55
03/11/25 04:20
ESR 11 mm/hour (0-20) 03/04/25 17:22
Estimated Creat Clear > 125 ml/min 03/11/25 04:20
Total Bilirubin 1.3 mg/dl (0.2-1.3) 03/07/25 02:59
AST 18 U/L (17-59) 03/07/25 02:59
ALT 14 U/L (0-50) 03/07/25 02:59
Alkaline Phosphatase 104 U/L (38-126) 03/07/25 02:59
C-Reactive Protein 12.10 mg/L (0.0-10.00) H 03/04/25 17:22
Most recent labs reviewed.
Micro Results:
03/05/25 10:39 Blood Culture - Final
Blood/Venous No Growth - Final Report
03/05/25 09:33 Blood Culture - Final
Blood/Venous No Growth - Final Report
03/05/25 11:39 Wound Culture - Final
Toe S aureus-Methicillin Sensitive
Alcaligenes Faecalis
Streptococcus agalactiae
Group C Streptococcus
Gram Stain - Final
03/04/25 23:56 MRSA Screen - Final
Nose Staph aureus MRSA
Imaging:
03/05/2025 MRI right lower extremity: Soft tissue swelling/edema of the great toe, with a soft tissue defect along the medial plantar aspect. Under the soft tissue defect there is a small focus of confluent low T1 and T2/STIR hyperintense signal
favored to represent early acute osteomyelitis. Please see full dictation for additional detail.
[2025-03-11] MEDS: GLUCOPHAGE 1000 MG PO (09:27)
[2025-03-11 11:58] VITALS: BP 122/83
[2025-03-11 12:06] LABS: Glucose - Point of Care 138 mg/dl (70-99)
--- NOTE | 2025-03-11 13:10 | CM ---
option animal care worker in room teaching patient. pt cleared for dc tohome after he is done . meds to be delivered to his home prior to evening dose. pt agreeable to this plan.
--- NOTE | 2025-03-11 14:08 | W.DCSUMMARY ---
Discharge Summary
Discharge Data
Date of Admission: 03/04/25
Date of Discharge: 03/11/25
-
Pending Results: No
Hospital Course
Principal Diagnosis:
Acute HFrEF exacerbation with Troponin elevation
Ischemic cardiomyopathy
R great toe diabetic wound with acute osteomyelitis (OM)
Chronic Diagnoses:�
Essential hypertension,
hyperlipidemia,
diabetes mellitus
Consultations:�
Infectious disease
Cardiology
Podiatry
Diabetes nurse practitioner
Procedures:�
Cardiac catheterization: L & RHC 03/07 which revealed high grade proximal OM2 and mid OM2 stenosis which was successfully stented
Clinical course:�
This is a 44-year-old male, with past medical history as stated above, who presented with dyspnea on exertion and right great toe wound.
Problem 1:
Acute HFrEF exacerbation with Troponin elevation.
He received IV Lasix while in the hospital and was discharged with oral Lasix 40 mg twice daily.
His echo noted EF 15% with global hypokinesis.
He underwent L & RHC on 03/07 which revealed high grade proximal OM2 and mid OM2 stenosis, which was successfully stented.
He needs to continue dual antiplatelet ASA/Brilinta going forward for the cardiac stents, and Coreg, spironolactone, Lisinopril for his ischemic cardiomyopathy
Of note, his LDL was noted to be high at 112. He was started with Crestor 20 mg daily this admission.
Problem 2:
R great toe diabetic wound with acute OM noted on MRI.
His blood culture were negative.
His wound culture grew MSSA, Strep. aglactae, Group C strep and Alcaligenes Faecalis.
He declined surgical management despite understanding risk of delaying surgical treatment.
He can continue IV antibiotic Ancef for 6 weeks per ID.
IV antibiotic by home infusion has been set up for patient.
Problem 3:
DM type 2 with unknown complications.
His HgbA1c was noted to be high at 9.9%.
He was started with metformin 500 mg twice daily and Farxiga 10 mg daily.
As for the rest of his medical problems, they were stable during his hospital stay.
Discharge Plan
-
Patient Disposition: Home with Home Care
Discharge Diagnosis/Procedures: Acute heart failure exacerbation (EF 15%);
Angioplasty with stent to Left circumflex artery;
R great toe diabetic wound with acute osteomyelitis;
Diabetes type 2 (A1C 9.9%)
Condition: Good
Diet: Low Cholesterol, 2 Gram Sodium, Diabetic, Carb Controlled and Restrict fluids to 48 oz
Driving Restrictions: No driving for 24 hours
Blood Work: BMP in 1 week
Other Services: Cardiac Rehab
Wound Care: Wound Care Instructions
R toe: dry dressing daily until further orders from podiatry.
L leg: adaptic and dry dressing change q other day and prn drainage.
moisturize legs daily after bathing with soap and water
Follow up with podiatry
Specialty Instructions: Weigh Daily- Call MD for wt gain/loss 3 lbs overnight/5 lbs in 1 week
Instructions: *PCP/Other [facility]er Heart Failure Instructions
Stand Alone Forms: DC Instructions- Cath/EP Lab
Referrals:
[facility]. Cardiac Rehab [Outside] - 04/03/25 8:30 am
(Cardiac Rehab Orientation and� First Exercise appointment is on Tuesday04/03/25 at 8:30 am.
The Cardiac Rehab gym is located on the first floor of the [facility].)
NONE,* [Family Provider] -
Sara Lay PA-C [Specified Professional Personl] - 03/15/25 10:20 am
Nick Muhammad MD [Active] - in one to two weeks (recurrent nosebleed)
Additional Discharge Medication Instructions: Continue to take ASA and Brillianta for the cardiac stent
Take Lasix 40 mg twice daily, Crestor, Coreg, spironolactone, Lisinopril for your heart failure
Continue IV Antibiotic Ancef for 6 weeks
Continue metformin and Farxiga for your diabetes
Prescriptions:
New
spironolactone 25 mg Tablet
12.5 mg PO DAILY Qty: 30 0RF
aspirin 81 mg Tablet,Delayed Release (Dr/Ec)
81 mg PO DAILY Qty: 30 0RF
ticagrelor [Brilinta] 90 mg Tablet
90 mg PO BID Qty: 60 0RF
cefazolin 10 gram Recon Soln
2 g IV Q8H Qty: 10 0RF
carvedilol 12.5 mg Tablet
12.5 mg PO BID Qty: 60 0RF
rosuvastatin 20 mg Tablet
20 mg PO QPM Qty: 30 0RF
dapagliflozin propanediol 10 mg Tablet
10 mg PO DAILY Qty: 30 0RF
furosemide 40 mg Tablet
40 mg PO BID AT 0800,1600 Qty: 60 0RF
amlodipine 5 mg Tablet
5 mg PO BID Qty: 30 0RF
lisinopril 20 mg Tablet
20 mg PO DAILY Qty: 30 0RF
metformin 500 mg tablet
500 mg PO BID Qty: 60 0RF
Discharge Orders:
Discharge Patient (As Directed); Ordered 03/11/25
Ordered By: Rosalba Herr
Care Plan Goals
Care Plan Goals:
Problem: Readiness for enhanced knowledge related to diagnosis and treatment plan
Goal: Understand your diagnosis and treatment plan needs, including medications if applicable.
Instructions: Know your diagnosis, underlying causes and treatment plan options, including medications if applicable. Consult with your health care team to learn about your diagnosis and treatment plan, including medications if applicable.
Discharge Date and Time
Print Language: THAI
--- NOTE | 2025-03-11 15:10 | PTCARENOTE ---
Patient met with infusion nurse, is self administering IV antibiotic without difficulty. Reviewed discharge instructions, medications, follow up appointments and labs needed with the patient and he states his understanding. Patient discharged home,
driving himself- no restrictions and plans to return to work tomorrow.
== END 2025-03-11 15:54 | disposition home or self-care (01) | DRG 321 ==
LOC: IVU 20:08
PROVIDERS: Emergency Medicine; Internal Medicine; Internal Medicine Interventional Cardiology; Physician Assistant; Physician Assistant Medical; Radiology Diagnostic Radiology; ADMITTING PHYSICIAN Internal Medicine; ATTENDING PHYSICIAN Internal Medicine; CONSULT PHYSICIAN Internal Medicine Infectious Disease; CONSULT PHYSICIAN Podiatrist Foot Surgery; EMERGENCY PHYSICIAN Emergency Medicine; OTHER PHYSICIAN Internal Medicine Cardiovascular Disease
PROC: 02703DZ Dilation of Coronary Artery, One Artery with Intraluminal Device, Percutaneous Approach (ICD-10-PCS; 2025-03-07)
PROC: B2151ZZ Fluoroscopy of Left Heart using Low Osmolar Contrast (ICD-10-PCS; 2025-03-07)
PROC: B2111ZZ Fluoroscopy of Multiple Coronary Arteries using Low Osmolar Contrast (ICD-10-PCS; 2025-03-07)
PROC: 4A023N7 Measurement of Cardiac Sampling and Pressure, Left Heart, Percutaneous Approach (ICD-10-PCS; 2025-03-07)
PROC: 02HV33Z Insertion of Infusion Device into Superior Vena Cava, Percutaneous Approach (ICD-10-PCS; 2025-03-08)
PROC: B5181ZA Fluoroscopy of Superior Vena Cava using Low Osmolar Contrast, Guidance (ICD-10-PCS; 2025-03-08)
DX: I11.0 Hypertensive heart disease with heart failure (principal); I50.23 Acute on chronic systolic (congestive) heart failure; M86.171 Other acute osteomyelitis, right ankle and foot; I25.5 Ischemic cardiomyopathy; E11.621 Type 2 diabetes mellitus with foot ulcer; E11.69 Type 2 diabetes mellitus with other specified complication; E11.40 Type 2 diabetes mellitus with diabetic neuropathy, unspecified; B95.61 Methicillin susceptible Staphylococcus aureus infection as the cause of diseases classified elsewhere; I42.0 Dilated cardiomyopathy; I25.10 Atherosclerotic heart disease of native coronary artery without angina pectoris; E78.00 Pure hypercholesterolemia, unspecified; E66.01 Morbid (severe) obesity due to excess calories; Z68.34 Body mass index [BMI] 34.0-34.9, adult; Z79.82 Long term (current) use of aspirin; E11.65 Type 2 diabetes mellitus with hyperglycemia; I16.0 Hypertensive urgency; I49.3 Ventricular premature depolarization; L97.519 Non-pressure chronic ulcer of other part of right foot with unspecified severity; Z79.899 Other long term (current) drug therapy; Z82.3 Family history of stroke
CPT/HCPCS: 71045; 71046; 73630; 73718; 76700; 80048; 80053; 80061; 80202; 82248; 82962; 83036; 83615; 83735; 83880; 84100; 84443; 84484; 85025; 85027; 85045; 85347; 85652; 86140; 87040; 87070; 87077; 87147; 87186; 87205; 92978; 93005; 93306; 93458; 93922; 93925; 96374; 99152; 99153; 99285; C1725; C1753; C1760; C1769; C1874; C1887; C1894; C9600; Q9950

== ENCOUNTER → 2025-04-17 13:00 | Outpatient (REF) | payer OTHER, SELFPAY | LOC: RCS 13:00 | PROVIDERS: ATTENDING PHYSICIAN Physician Assistant | DX: I25.10 Atherosclerotic heart disease of native coronary artery without angina pectoris (principal); I42.9 Cardiomyopathy, unspecified; I50.20 Unspecified systolic (congestive) heart failure | CPT/HCPCS: 93306 ==